=== PATIENT | male | born 1935 | race Caucasian/White ===

== ENCOUNTER 2019-01-02 23:59 | Inpatient (IN) | payer MEDICARE, OTHER ==
[~2019-01-02] VITALS: Ht 165.1 cm; Wt 86.0 kg
[~2019-01-02 23:59] MED LIST: ASPI-831 PO; ATOR40TA68 PO; CHOL100062 PO; ENAL10TA PO; ENOX100D2 SC; LABE200T7 PO; LEVO750T25 PO; LISI-313 PO; SERT50TA6 PO; TAMS-14 PO
[2019-01-03] MEDS ORDERED: ACETAMINOPHEN 325 MG TAB PO ONE (03:30)
[2019-01-03] MEDS ORDERED: VANCOMYCIN 1 GM (PMX) 250 ML IVPB ONE (03:30)
[2019-01-03] MEDS ORDERED: PIPER-TAZO 3.375 GM IV (PMX) 100 ML IVPB ONE (03:30)
[2019-01-03] MEDS ORDERED: VANCOMYCIN IV PER PHARMACY XX SCH (04:00)
[2019-01-03] MEDS ORDERED: NACL 0.9% 3 ML SYG IV SCH (04:00)
[2019-01-03] MEDS ORDERED: ONDANSETRON 4 MG INJ IV PRN (04:00)
[2019-01-03] MEDS ORDERED: BISACODYL (EC) 5 MG TAB PO PRN (04:00)
[2019-01-03] MEDS ORDERED: ACETAMINOPHEN 325 MG TAB PO PRN (04:00)
[2019-01-03] MEDS ORDERED: DOCUSATE SODIUM 100 MG CAP PO PRN (04:00)
--- NOTE | 2019-01-03 04:00 | ERD ---
ER Documentation Chief Complaint Chief Complaint [id number],from home,weakness HPI The patient is a 83-year-old male, presenting to the ER from home because of generalized weakness, trouble walking this afternoon. He denies trauma, sy ncope, near syncope, headache, neck pain, chest pain, dyspnea, abdominal pain, vomiting, dizzy, diarrhea. He does not smoke nor drink Past medical history: Hypertension, CAD Past surgical history: AICD ROS All systems reviewed and are negative except as per history of present illness. Allergies Allergies: Coded Allergies: No Known Allergy (Unverified , 01/03/19) PMhx/Soc Medical and Surgical Hx: pt denies Surgical Hx Hx Alcohol Use: No Hx Substance Use: No Hx Tobacco Use: Yes Smoking Status: Former smoker Physical Exam Vitals Vital Signs Date Temp Pulse Resp B/P (MAP) Pulse Ox O2 O2 Flow FiO2 Time Delivery Rate 01/03/19 36.6 03:43 01/03/19 97.8 78 27 153/84 98 Room Air 02:59 (107) 01/03/19 Nasal 2 01:15 Cannula 01/03/19 100.6 100 18 182/96 95 00:10 (124) Physical Exam Const: No acute distress. Head: Atraumatic. Eyes: Normal Conjunctiva. ENT: Normal External Ears, Nose and Mouth. Neck: Full range of motion. No meningismus. Resp: Clear to auscultation bilaterally. Cardio: Regular rate and rhythm. Abd: Soft, non distended, normal bowel sounds, non tender. Skin: No petechiae or rashes. Back: No midline or flank tenderness. Ext: No cyanosis, or edema. Neur: Awake and alert. No focal deficit Psych: Normal Mood and Affect. Result Diagram: 01/03/19 0019 01/03/19 0019 Results 24 hrs Laboratory Tests Test 01/03/19 00:16 01/03/19 00:19 01/03/19 00:26 Urine Color YELLOW Urine Clarity SLIGHTLY CLOUDY Urine pH 5.0 Urine Specific [place] 1.019 Urine Ketones NEGATIVE mg/dL Urine Nitrite NEGATIVE mg/dL Urine Bilirubin NEGATIVE mg/dL Urine Urobilinogen NEGATIVE mg/dL Urine Leukocyte Esterase NEGATIVE Page/ul Urine Microscopic RBC 2 /HPF Urine Microscopic WBC 1 /HPF Urine Mucus FEW /HPF Urine Hemoglobin 2+ mg/dL Urine Glucose NEGATIVE mg/dL Urine Total Protein 1+ mg/dl White Blood Count 24.9 10^3/ul Red Blood Count 5.82 10^6/ul Hemoglobin 14.6 g/dl Hematocrit 46.9 % Mean Corpuscular Volume 80.6 fl Mean Corpuscular Hemoglobin 25.1 pg Mean Corpuscular 31.1 g/dl Hemoglobin Concent Red Cell Distribution Width 16.4 % Platelet Count 153 10^3/UL Mean Platelet Volume 10.2 fl Immature Granulocytes % 0.500 % Neutrophils % 91.9 % Lymphocytes % 2.9 % Monocytes % 4.4 % Eosinophils % 0.1 % Basophils % 0.2 % Nucleated Red Blood Cells % 0.0 /100WBC Immature Granulocytes # 0.120 10^3/ul Neutrophils # 22.9 10^3/ul Lymphocytes # 0.7 10^3/ul Monocytes # 1.1 10^3/ul Eosinophils # 0.0 10^3/ul Basophils # 0.1 10^3/ul Nucleated Red Blood Cells # 0.0 10^3/ul Prothrombin Time 13.4 Sec Prothrombin Time Ratio 1.0 INR International 1.01 Normalized Ratio Activated Partial Thromboplast 30.7 Sec Time Sodium Level 142 mmol/L Potassium Level 4.2 mmol/L Chloride Level 106 mmol/L Carbon Dioxide Level 25 mmol/L Anion Gap 11 Blood Urea Nitrogen 21 mg/dl Creatinine 1.12 mg/dl Est Glomerular Filtrat mL/min Rate mL/min Glucose Level 126 mg/dl Calcium Level 9.4 mg/dl Total Bilirubin 1.0 mg/dl Direct Bilirubin 0.00 mg/dl Indirect Bilirubin 1.0 mg/dl Aspartate Amino 21 IU/L Transf (AST/SGOT) Alanine 14 IU/L Aminotransferase (ALT/SGPT) Alkaline Phosphatase 82 IU/L Troponin I 0.015 ng/ml Total Protein 8.0 g/dl Albumin 4.3 g/dl Globulin 3.70 g/dl Albumin/Globulin Ratio 1.16 POC Venous Lactate 0.7 mmol/L Current Medications Medications Dose Sig/Xiao Start Time Status Last (Trade) Ordered Route PRN Stop Time Admin Dose Reason Admin 650 mg ONCE ONCE 01/03/19 DC 01/03/19 Acetaminophen PO 03:30 03:43 (Tylenol 01/03/19 03:31 Tab) Vancomycin 250 ml @ ONCE ONCE 01/03/19 HCl 125 mls/hr IVPB 03:30 01/03/19 05:29 Piperacillin 100 ml @ ONCE ONCE 01/03/19 01/03/19 Sod/ 200 mls/hr IVPB 03:30 03:44 Tazobactam 01/03/19 03:59 Sod Procedures/MDM [place] [id number] Radiology Main Line: [phone] DIAGNOSTIC IMAGING REPORT Patient: PREM SHERMAN : 1935 Age: 83 Sex: M MR #: [id number] DOS: 01/03/19 0020 Ordering MD: PREM STONER MD Location: E/R Room/Bed: PROCEDURE: CHEST - 1 VIEW CLINICAL INDICATION: 83-year-old male with shortness of breath and sepsis. TECHNIQUE: A single frontal AP portable view of the chest was performed. The images were reviewed on a PACS workstation. COMPARISON: None. FINDINGS: There is a right-sided chest port in place with the tip of the catheter in the distal superior vena cava. There is a left-sided AICD dual-chamber pacemaker combination. The cardiomediastinal silhouette is enlarged. The lung apices are partially obscured by the patient's overlying mandible. There is moderate elevation left hemidiaphragm. There is mild left basilar subsegmental atelectasis. There is no evidence for focal consolidation. There is no evidence for congestive heart failure. There is no evidence for pneumothorax. The osseous structures are intact. IMPRESSION: 1. Right-sided chest port. 2. Left-sided AICD dual-chamber pacemaker combination. 3. Cardiomegaly. 4. Moderate elevation left hemidiaphragm with mild left basilar subsegmental a telectasis. .Grant Flores MD, Date Time Electronically viewed and signed by .Grant Flores MD, on 01/03/2019 01:55 .M/ CC: PREM STONER MD [id number] EKG: Read by emergency physician Rate/Rhythm: Normal Sinus Rhythm 94 beats/min QRS, ST, T-waves: No ST elevation, no T inversion, inferior anterior lateral Q Impression: Abnormal EKG MEDICAL MAKING DECISION: The patient is a 83-year-old male, presenting with ac [place] SIRS with leukocytosis of 25,000 of unclear sources. He was treated empirically with Zosyn IV and vancomycin IV, for fever with good response. The differential diagnoses considered include but are not limited to influenza, pneumonia, cystitis, endocarditis Departure Diagnosis: Primary Impression: SIRS (systemic inflammatory response syndrome) Condition: Stable Comments I discussed the findings with the patient. I notified the patient with Dr. Martinez via [employer] at 3:35 am, who was made aware of the lab, the treatment, the patient condition. The patient is admitted to [facility] Disclaimer: Inadvertent spelling and grammatical errors are likely due to EHR/dictation software use and do not reflect on the overall quality of patient care. Also, please note that the electronic time recorded on this note does not necessarily reflect the actual time of the patient encounter. PREM STONER MD Jan 03, 2019 03:59
[2019-01-03 05:00] VITALS: BP 156/88; PULSE 76; RESP 18; Ht 165.1 cm; Wt 86.0 kg
--- NOTE | 2019-01-03 06:55 | HP ---
Date/Time of Note Date/Time of Note DATE: 01/03/19 TIME: 06:55 Assessment/Plan VTE Prophylaxis SCD applied (from Nsg): Yes Pharmacological prophylaxis: NA/contraindicated Pharm contraindication: low risk/ambulating Lines/Catheters IV Catheter Type (from Nrsg): [place] Urinary Cath still in place: No Assessment/Plan Hospital Course This is a 83-year-old male being admitted to the [facility] floor for: #1 systemic inflammatory response syndrome: Viral versus bacterial. He did present with a temperature of 100.6. And a white count of 24,000. He does not have any meningeal signs.. Chest x-ray and urinalysis do not show a source at the current time. Cultures are pending. Broad-spectrum antibiotics of vancomycin and Zosyn. Need to monitor the white count. #2 hypertension: We will need to confirm patient's blood pressure medications, at the current time PRN hydralazine #3 coronary artery disease: Again only to confirm patient's home medications, he has pacemaker/AICD. Monitor closely. will check an echo #4 generalized weakness: Secondary to possible underlying infection. Mild dehydration. Will hydrate the patient. PT evaluation. #5 possible dementia: We will need to corroborate his history with any family/friends. He was not able to provide me with any phone numbers to any family. PT evaluation. #6 DVT GI prophylaxis: SCDs, no GI prophylaxis indicated Further treatment strategy will be implemented as per the clinical course. Result Diagram: 01/03/19 0019 01/03/19 0019 Results 24hrs Laboratory Tests Test 01/03/19 00:16 01/03/19 00:19 01/03/19 00:26 01/03/19 02:20 Urine Color YELLOW Urine Clarity SLIGHTLY CLOUDY A Urine pH 5.0 Urine Specific 1.019 [place] Urine Ketones NEGATIVE Urine Nitrite NEGATIVE Urine Bilirubin NEGATIVE Urine NEGATIVE Urobilinogen Urine Leukocyte NEGATIVE Esterase Urine Microscopic 2 RBC Urine Microscopic 1 WBC Urine Mucus FEW A Urine Hemoglobin 2+ H Urine Glucose NEGATIVE Urine Total 1+ H Protein White Blood Count 24.9 H Red Blood Count 5.82 Hemoglobin 14.6 Hematocrit 46.9 Mean Corpuscular 80.6 L Volume Mean Corpuscular 25.1 L Hemoglobin Mean Corpuscular 31.1 L Hemoglobin Concen t Red Cell 16.4 H Distribution Width Platelet Count 153 Mean Platelet 10.2 Volume Immature 0.500 H Granulocytes % Neutrophils % 91.9 H Lymphocytes % 2.9 L Monocytes % 4.4 Eosinophils % 0.1 Basophils % 0.2 Nucleated Red 0.0 Blood Cells % Immature 0.120 H Granulocytes # Neutrophils # 22.9 H Lymphocytes # 0.7 L Monocytes # 1.1 H Eosinophils # 0.0 Basophils # 0.1 Nucleated Red 0.0 Blood Cells # Prothrombin Time 13.4 Prothrombin Time 1.0 Ratio INR International 1.01 Normalized Ratio Activated 30.7 Partial Thrombopl ast Time Sodium Level 142 Potassium Level 4.2 Chloride Level 106 Carbon Dioxide 25 Level Anion Gap 11 Blood Urea 21 H Nitrogen Creatinine 1.12 Est Glomerular Filtrat Rate mL/min Glucose Level 126 Calcium Level 9.4 Total Bilirubin 1.0 Direct Bilirubin 0.00 Indirect 1.0 Bilirubin Aspartate Amino 21 Transf (AST/SGOT) Alanine 14 Aminotransferase (ALT/SGPT) Alkaline 82 Phosphatase Troponin I 0.015 Total Protein 8.0 Albumin 4.3 Globulin 3.70 H Albumin/Globulin 1.16 Ratio POC Venous 0.7 Lactate Lactic Acid Level 1.2 Test 01/03/19 04:35 Lactic Acid Level 1.2 HPI/ROS Admit Date/Time Admit Date/Time Jan 03, 2019 at 03:38 Hx of Present Illness Chief complaint: Generalized weakness, unsteady gait Patient is a poor historian This is a 83-year-old male with a past medical history of hypertension and coronary artery disease with a pacemaker AICD who presented from home with generalized weakness. Patient is a poor historian and possibly has underlying dementia. He states that he lives with family. And that he had trouble walking yesterday. He denies any chest pain or shortness of breath or any fevers. He also has a right chest port but he does not know why he has it. He denies any nausea vomiting or diarrhea. He reports that he walks with a walker at home and on occasion with a cane. Allergies: NKDA Medications: Unknown ROS Const: As per HPI Eyes : No pain discharge or redness or change in visual acuity ENT: No pain, sore throat, congestion, congestion, dysphagia or discharge Respiratory: No shortness of breath, cough, sputum, wheezing, or pleuritic pain Cardiovascular: No chest pain, palpitation, PND, or edema GI : no change in appetite, abdominal pain, nausea, vomiting, diarrhea, constipation, or change in the color his stool Genitourinary: No dysuria, hematuria, flank pain , discharge or CVA tenderness Musculoskeletal: As per HPI Skin: No rash, bruising or hives Neuro: No headache, dizziness, syncope, seizure, focal weakness Endocrine: No polyuria, polydipsia, temperature intolerance Psych: No hallucination, depression, anxiety or suicidal ideation PMH/Family/Social Past Medical History Hypertension, coronary artery disease, unable to obtain further history seconda ry to possibly underlying dementia Medications Current Medications IV Flush (NS 3 ml) 3 ml PER PROTOCOL IV ; Start 01/03/19 at 04:00 Ondansetron HCl (Zofran Inj) 4 mg Q6H PRN IV NAUSEA/VOMITING; Start 01/03/19 at 04:00 Acetaminophen (Tylenol Tab) 650 mg Q6H PRN PO .PAIN 1-3 OR TEMP; Start 01/03/19 at 04:00 Docusate Sodium (Colace) 100 mg Q12H PRN PO .CONSTIPATION; Start 01/03/19 at 04:00 Bisacodyl (Dulcolax) 5 mg DAILY PRN PO .CONSTIPATION; Start 01/03/19 at 04:00 Vancomycin HCl (Vanco Iv Per Pharmacy) VANCOMYCIN PER PHARMACY PER PROTOCOL XX ; Start 01/03/19 at 04:00 Piperacillin Sod/ Tazobactam Sod 100 ml @ 200 mls/hr Q6 IVPB ; Start 01/03/19 at 08:00 Vancomycin HCl 1.25 gm/Sodium Chloride 250 ml @ 83.333 mls/ hr Q24H IVPB ; Start 01/04/19 at 03:00 Miscellaneous Information (*Rx Drug Level Order Reminder*) VANCOMYCIN TROUGH LEVEL 0200 ONCE XX ; Start 01/07/19 at 02:00; Stop 01/07/19 at 02:01 Coded Allergies: No Known Allergy (Unverified , 01/03/19) Past Surgical History AICD/pacemaker,unable to obtain further history secondary to possibly underlying dementia Family History Significant Family History: no pertinent family hx Social History Alcohol Use: none Smoking Status: Never smoker Drug Use: none Exam/Review of Systems Vital Signs Vitals Vital Signs Date Temp Pulse Resp B/P (MAP) Pulse Ox O2 O2 Flow FiO2 Time Delivery Rate 01/03/19 97.5 76 18 156/88 97 Room Air 05:00 (110) 01/03/19 2 01:15 Exam Exam General: Patient is a pleasant male currently lying in bed in no acute distress HEENT: Atraumatic, normocephalic. The pupils are equal, round and reactive. Extraocular motor are intact Neck: Supple with full range of motion. No rigidity or meningismus Chest: Right-sided chest port Lungs: Clear to auscultation bilaterally no crackles rales or wheezing Heart: Normal S1-S2, Regular rhythm and rate. No murmur, S3, or S4 Abdomen: Soft , nontender, nondistended , bowel sounds are present. No guarding no rebound tenderness , No masses or organomegaly. No costovertebral temporal angle mass Extremities: Normal to inspection, no edema no cyanosis Neurologic: He is alert and awake, speech is slow but normal, cranial nerves II through XII intact, he is able to move all 4 of his extremities. Additional Comments EKG: Rate/Rhythm: Normal Sinus Rhythm 94 beats/min QRS, ST, T-waves: No ST elevation, no T inversion, inferior anterior lateral Q Impression: Abnormal EKG AJ GREENBERG Jan 03, 2019 06:55
[2019-01-03] MEDS ORDERED: hydrALAzine 20 MG INJ IV PRN (07:19)
[2019-01-03 07:35] VITALS: BP 142/78; PULSE 74; RESP 20
[2019-01-03] MEDS: PIPER-TAZO 3.375 GM IV (PMX) 100 ML IVPB SCH ×4 (08:10→23:03)
--- NOTE | 2019-01-03 12:35 | PN ---
Date/Time of Note Date/Time of Note DATE: 01/03/19 TIME: 12:26 Assessment/Plan VTE Prophylaxis Risk score (from Ns)>0 risk: 7 [place] [facility] [place] Pharmacological prophylaxis: LMWH Lines/Catheters [facility]from [facility] Peripheral IV Urinary Cath still in place: No Assessment/Plan Assessment/Plan 1. SIRS, unknown source - patient with elevated WBC and mild fever but no source at this time. Pancultures pending - continue broad spectrum antibiotics for now and await cx results - will check influenza 2. CAD - pacer/AICD in placed - will need to find out home medications 3. Generalized weakness - per GF patient usually sleeps all day and is prone to falls - PT consulted - working up for possible infectious source as cause for weakness 4. h/o Colon cancer 2012 - stable 5. Mild cognitive impairment - patient remains pleasant 6. Disposition - monitor WBC and await culture results - PT to evaluated gait Result Diagram: 01/03/19 0019 01/03/19 0019 Results 24hrs Laboratory Tests Test 01/03/19 00:16 01/03/19 00:19 01/03/19 00:26 01/03/19 02:20 Urine Color YELLOW Urine Clarity SLIGHTLY CLOUDY A Urine pH 5.0 Urine Specific 1.019 [place] Urine Ketones NEGATIVE Urine Nitrite NEGATIVE Urine Bilirubin NEGATIVE Urine NEGATIVE Urobilinogen Urine Leukocyte NEGATIVE Esterase Urine Microscopic 2 RBC Urine Microscopic 1 WBC Urine Mucus FEW A Urine Hemoglobin 2+ H Urine Glucose NEGATIVE Urine Total 1+ H Protein White Blood Count 24.9 H Red Blood Count 5.82 Hemoglobin 14.6 Hematocrit 46.9 Mean Corpuscular 80.6 L Volume Mean Corpuscular 25.1 L Hemoglobin Mean Corpuscular 31.1 L Hemoglobin Concen t Red Cell 16.4 H Distribution Width Platelet Count 153 Mean Platelet 10.2 Volume Immature 0.500 H Granulocytes % Neutrophils % 91.9 H Lymphocytes % 2.9 L Monocytes % 4.4 Eosinophils % 0.1 Basophils % 0.2 Nucleated Red 0.0 Blood Cells % Immature 0.120 H Granulocytes # Neutrophils # 22.9 H Lymphocytes # 0.7 L Monocytes # 1.1 H Eosinophils # 0.0 Basophils # 0.1 Nucleated Red 0.0 Blood Cells # Prothrombin Time 13.4 Prothrombin Time 1.0 Ratio INR International 1.01 Normalized Ratio Activated 30.7 Partial Thrombopl ast Time Sodium Level 142 Potassium Level 4.2 Chloride Level 106 Carbon Dioxide 25 Level Anion Gap 11 Blood Urea 21 H Nitrogen Creatinine 1.12 Est Glomerular Filtrat Rate mL/min Glucose Level 126 Calcium Level 9.4 Total Bilirubin 1.0 Direct Bilirubin 0.00 Indirect 1.0 Bilirubin Aspartate Amino 21 Transf (AST/SGOT) Alanine 14 Aminotransferase (ALT/SGPT) Alkaline 82 Phosphatase Troponin I 0.015 Total Protein 8.0 Albumin 4.3 Globulin 3.70 H Albumin/Globulin 1.16 Ratio POC Venous 0.7 Lactate Lactic Acid Level 1.2 Test 01/03/19 04:35 Lactic Acid Level 1.2 Subjective 24 Hr Interval Summary Free Text/Dictation Patient states hes "happy" today and denies any new issues. States came to the ER due to weakness. Exam/Review of Systems Exam Vitals Vital Signs Date Temp Pulse Resp B/P (MAP) Pulse Ox O2 O2 Flow FiO2 Time Delivery Rate 01/03/19 97.9 74 20 142/78 92 07:35 (99) 01/03/19 Room Air 05:00 01/03/19 2 01:15 Exam General: Patient knows name and states he's in [place]. Neck: Supple with full range of motion. No rigidity or meningismus Chest: Right-sided chest port Lungs: Clear to auscultation bilaterally no crackles rales or wheezing Heart: Normal S1-S2, Regular rhythm and rate. No murmur, S3, or S4 Abdomen: Soft , nontender, nondistended , bowel sounds are present. No guarding no rebound tenderness Extremities: Normal to inspection, no edema no cyanosis Results Results 24hrs Laboratory Tests Test 01/03/19 00:16 01/03/19 00:19 01/03/19 00:26 01/03/19 02:20 Urine Color YELLOW Urine Clarity SLIGHTLY CLOUDY A Urine pH 5.0 Urine Specific 1.019 [place] Urine Ketones NEGATIVE Urine Nitrite NEGATIVE Urine Bilirubin NEGATIVE Urine NEGATIVE Urobilinogen Urine Leukocyte NEGATIVE Esterase Urine Microscopic 2 RBC Urine Microscopic 1 WBC Urine Mucus FEW A Urine Hemoglobin 2+ H Urine Glucose NEGATIVE Urine Total 1+ H Protein White Blood Count 24.9 H Red Blood Count 5.82 Hemoglobin 14.6 Hematocrit 46.9 Mean Corpuscular 80.6 L Volume Mean Corpuscular 25.1 L Hemoglobin Mean Corpuscular 31.1 L Hemoglobin Concen t Red Cell 16.4 H Distribution Width Platelet Count 153 Mean Platelet 10.2 Volume Immature 0.500 H Granulocytes % Neutrophils % 91.9 H Lymphocytes % 2.9 L Monocytes % 4.4 Eosinophils % 0.1 Basophils % 0.2 Nucleated Red 0.0 Blood Cells % Immature 0.120 H Granulocytes # Neutrophils # 22.9 H Lymphocytes # 0.7 L Monocytes # 1.1 H Eosinophils # 0.0 Basophils # 0.1 Nucleated Red 0.0 Blood Cells # Prothrombin Time 13.4 Prothrombin Time 1.0 Ratio INR International 1.01 Normalized Ratio Activated 30.7 Partial Thrombopl ast Time Sodium Level 142 Potassium Level 4.2 Chloride Level 106 Carbon Dioxide 25 Level Anion Gap 11 Blood Urea 21 H Nitrogen Creatinine 1.12 Est Glomerular Filtrat Rate mL/min Glucose Level 126 Calcium Level 9.4 Total Bilirubin 1.0 Direct Bilirubin 0.00 Indirect 1.0 Bilirubin Aspartate Amino 21 Transf (AST/SGOT) Alanine 14 Aminotransferase (ALT/SGPT) Alkaline 82 Phosphatase Troponin I 0.015 Total Protein 8.0 Albumin 4.3 Globulin 3.70 H Albumin/Globulin 1.16 Ratio POC Venous 0.7 Lactate Lactic Acid Level 1.2 Test 01/03/19 04:35 Lactic Acid Level 1.2 Medications Medication Current Medications IV Flush (NS 3 ml) 3 ml PER PROTOCOL IV ; Start 01/03/19 at 04:00 Ondansetron HCl (Zofran Inj) 4 mg Q6H PRN IV NAUSEA/VOMITING; Start 01/03/19 at 04:00 Acetaminophen (Tylenol Tab) 650 mg Q6H PRN PO .PAIN 1-3 OR TEMP; Start 01/03/19 at 04:00 Docusate Sodium (Colace) 100 mg Q12H PRN PO .CONSTIPATION; Start 01/03/19 at 04:00 Bisacodyl (Dulcolax) 5 mg DAILY PRN PO .CONSTIPATION; Start 01/03/19 at 04:00 Vancomycin HCl (Vanco Iv Per Pharmacy) VANCOMYCIN PER PHARMACY PER PROTOCOL XX ; Start 01/03/19 at 04:00 Piperacillin Sod/ Tazobactam Sod 100 ml @ 200 mls/hr Q6 IVPB Last administered on 01/03/19at 12:07; Admin Dose 200 MLS/HR; Start 01/03/19 at 08:00 Vancomycin HCl 1.25 gm/Sodium Chloride 250 ml @ 83.333 mls/ hr Q24H IVPB ; Start 01/04/19 at 03:00 Miscellaneous Information (*Rx Drug Level Order Reminder*) VANCOMYCIN TROUGH LEVEL 0200 ONCE XX ; Start 01/07/19 at 02:00; Stop 01/07/19 at 02:01 Hydralazine HCl (Apresoline) 10 mg Q4H PRN IV ELEVATED BLOOD PRESSURE; Start 01/03/19 at 07:19 DELTA URIAS MD Jan 03, 2019 12:34
[2019-01-03 14:00] VITALS: BP 128/83; PULSE 72; RESP 18
[2019-01-03 20:43] VITALS: BP 158/95; PULSE 75; RESP 18
--- NOTE | 2019-01-03 23:08 | CONS ---
DATE OF ADMISSION: 01/03/2019 DATE OF CONSULTATION: 01/03/2019 TYPE OF CONSULTATION: Infectious Disease. REASON FOR CONSULTATION: Antibiotic management. HISTORY OF PRESENT ILLNESS: Jori Nunes is an 83-year-old male who was brought in from home with weakness and is being seen for antibiotic management. His major problems include: 1. Hypertension. 2. Coronary artery disease. 3. AICD. Acutely, the patient comes in complaining of weakness. PAST SURGICAL HISTORY: Has to do with his pacemaker and defibrillator. FAMILY HISTORY: Noncontributory. SOCIAL HISTORY: He is a former smoker. He does not drink or abuse drugs. ALLERGIES: NONE TO PENICILLIN, SULFA OR FOODS. MEDICATIONS: Per chart. REVIEW OF SYSTEMS: Noncontributory. PHYSICAL EXAMINATION: GENERAL: The patient is alert, in no acute distress. VITAL SIGNS: T-max 100.6. SKIN: Without generalized rash. HEENT: Within normal limits. NECK: Supple. LYMPH NODES: None palpable. CHEST: Decreased breath sounds at the bases. HEART: Without murmur or gallop. ABDOMEN: Soft, nontender, without organosplenomegaly or masses. EXTREMITIES: Without cyanosis, clubbing, or edema. RECTAL AND GENITAL: Deferred. NEUROLOGIC: No focal neurological abnormality. ANCILLARY LABORATORY DATA: White count of 24.9 with 92% neutrophils, H and H of 14.6 and 46.9, plate let count 153,000. BUN and creatinine 21/1.12, glucose of 126. HOSPITAL COURSE: The patient currently was placed on vancomycin and Zosyn. Chest x-ray showed right -sided chest port, left-sided AICD dual chamber pacemaker combination, cardiomegaly, moderate elevati on of left hemidiaphragm with mild left basilar subsegmental atelectasis, no evidence of focal consol idation, no evidence for congestive heart failure, no evidence for pneumothorax, he has left basilar subsegmental atelectasis. IMPRESSION AND PLAN: The patient presents with leukocytosis of 25,000, or 24.9, the etiology of whic h is unclear. He was started empirically on vancomycin and Zosyn. The patient has systemic inflamma tory response syndrome, viral versus bacterial, with an elevated white count that he has it is more l ikely to be bacterial. The patient with possible dementia. Urine is negative for leukocytosis and l eukocyte esterase today. [place] cultures are pending. We will continue him on current therapy. I will dictate my findings to the hospitalist. Dictated By: LOLA TRINIDAD MD, JD/JEYSON Conf#: [id number] DID#: [id number]
[2019-01-04] VITALS (7 sets, daily range): BP systolic 100–176; BP diastolic 57–99; PULSE 70–110; RESP 15–24
[2019-01-04] MEDS: VANCOMYCIN HCL 1.25 GM in SOD CHLORIDE 0.9% 250 ML IVPB SCH (02:03)
[2019-01-04] MEDS ORDERED: ALBUTEROL/IPRATROPIUM (NEB) 3 ML AMP HHN ONE (02:57)
[2019-01-04] MEDS ORDERED: LEVALBUTEROL (NEB) 1.25 MG/0.5 ML AMP HHN PRN (03:30)
[2019-01-04] MEDS ORDERED: FUROSEMIDE 20 MG INJ IV ONE (04:00)
[2019-01-04] MEDS: PIPER-TAZO 3.375 GM IV (PMX) 100 ML IVPB SCH ×2 (05:29→11:24)
[2019-01-04] MEDS ORDERED: LEVALBUTEROL (NEB) 0.63 MG/3 ML AMP HHN PRN (08:30)
[2019-01-04] MEDS ORDERED: ENOXAPARIN 40 MG/0.4 ML SYG SC SCH (09:00)
--- NOTE | 2019-01-04 09:31 | PN ---
Date/Time of Note Date/Time of Note DATE: 01/04/19 TIME: 09:22 Assessment/Plan VTE Prophylaxis Risk score (from Ns)>0 risk: 7 SCD applied (from Ns): Yes Pharmacological prophylaxis: LMWH Lines/Catheters IV Catheter Type (from Nrs): Peripheral IV Urinary Cath still in place: No Assessment/Plan Assessment/Plan 1. SIRS, unknown source - WBC trending down - ID consultation appreciated - Blood culture positives but may be contaminant. Will repeat blood cultures - continue broad spectrum antibiotics for now 2. CAD - pacer/AICD in placed - restarted home medications 3. Generalized weakness - per GF patient usually sleeps all day and is prone to falls - PT consulted for evaluation 4. h/o Colon cancer 2012 - stable 5. Mild cognitive impairment - patient remains pleasant 6. Disposition - monitor WBC and await repeat blood cultures - PT to evaluated gait Result Diagram: 01/04/19 0438 01/04/19 0438 Results 24hrs Laboratory Tests Test 01/04/19 04:38 White Blood Count 23.6 H Red Blood Count 5.54 Hemoglobin 13.9 L Hematocrit 45.5 Mean Corpuscular Volume 82.1 Mean Corpuscular Hemoglobin 25.1 L Mean Corpuscular Hemoglobin Concent 30.5 L Red Cell Distribution Width 16.7 H Platelet Count 146 Mean Platelet Volume 10.4 Immature Granulocytes % 0.700 H Neutrophils % 89.7 H Lymphocytes % 3.1 L Monocytes % 5.8 Eosinophils % 0.4 Basophils % 0.3 Nucleated Red Blood Cells % 0.0 Immature Granulocytes # 0.160 H Neutrophils # 21.2 H Lymphocytes # 0.7 L Monocytes # 1.4 H Eosinophils # 0.1 Basophils # 0.1 Nucleated Red Blood Cells # 0.0 Sodium Level 144 Potassium Level 3.5 Chloride Level 108 Carbon Dioxide Level 25 Anion Gap 11 Blood Urea Nitrogen 23 H Creatinine 1.11 Est Glomerular Filtrat Rate mL/min Glucose Level 121 Hemoglobin A1c 5.3 Calcium Level 9.2 Magnesium Level 2.0 Total Bilirubin 0.7 Direct Bilirubin 0.00 Indirect Bilirubin 0.7 Aspartate Amino Transf (AST/SGOT) 19 Alanine Aminotransferase (ALT/SGPT) 11 L Alkaline Phosphatase 72 Total Protein 7.5 Albumin 4.0 Globulin 3.50 H Albumin/Globulin Ratio 1.14 Triglycerides Level 118 Cholesterol Level 149 LDL Cholesterol, Calculated 89 HDL Cholesterol 36 Cholesterol/HDL Ratio 4.1 Thyroid Stimulating Hormone (TSH) 1.240 Subjective 24 Hr Interval Summary Free Text/Dictation Patient is doing well and denies any new issues. requesting orange juice. Denies any fevers or chills. Was noted to be SOB yesterday but improved with neb tx. Exam/Review of Systems Exam Vitals Vital Signs Date Temp Pulse Resp B/P (MAP) Pulse Ox O2 O2 Flow FiO2 Time Delivery Rate 01/04/19 98.1 73 15 163/83 94 Nasal 08:13 (109) Cannula 01/04/19 2.0 03:33 Intake and Output 01/03/19 01/03/19 01/04/19 1515:00 23:00 07:00 IntakeIntake Total 520 ml 200 ml 568 ml OutputOutput Total 300 ml 100 ml 900 ml BalanceBalance 220 ml 100 ml -332 ml Exam General: Patient in no acute distress. oriented to self and hospital Neck: Supple Chest: Right-sided chest port Lungs: Clear to auscultation bilaterally no crackles rales. mild audible expiratory wheeze Heart: Normal S1-S2, Regular rhythm and rate. No murmur, S3, or S4 Abdomen: Soft , nontender, nondistended , bowel sounds are present. No guarding no rebound tenderness Extremities: Normal to inspection, no edema no cyanosis Results Results 24hrs Laboratory Tests Test 01/04/19 04:38 White Blood Count 23.6 H Red Blood Count 5.54 Hemoglobin 13.9 L Hematocrit 45.5 Mean Corpuscular Volume 82.1 Mean Corpuscular Hemoglobin 25.1 L Mean Corpuscular Hemoglobin Concent 30.5 L Red Cell Distribution Width 16.7 H Platelet Count 146 Mean Platelet Volume 10.4 Immature Granulocytes % 0.700 H Neutrophils % 89.7 H Lymphocytes % 3.1 L Monocytes % 5.8 Eosinophils % 0.4 Basophils % 0.3 Nucleated Red Blood Cells % 0.0 Immature Granulocytes # 0.160 H Neutrophils # 21.2 H Lymphocytes # 0.7 L Monocytes # 1.4 H Eosinophils # 0.1 Basophils # 0.1 Nucleated Red Blood Cells # 0.0 Sodium Level 144 Potassium Level 3.5 Chloride Level 108 Carbon Dioxide Level 25 Anion Gap 11 Blood Urea Nitrogen 23 H Creatinine 1.11 Est Glomerular Filtrat Rate mL/min Glucose Level 121 Hemoglobin A1c 5.3 Calcium Level 9.2 Magnesium Level 2.0 Total Bilirubin 0.7 Direct Bilirubin 0.00 Indirect Bilirubin 0.7 Aspartate Amino Transf (AST/SGOT) 19 Alanine Aminotransferase (ALT/SGPT) 11 L Alkaline Phosphatase 72 Total Protein 7.5 Albumin 4.0 Globulin 3.50 H Albumin/Globulin Ratio 1.14 Triglycerides Level 118 Cholesterol Level 149 LDL Cholesterol, Calculated 89 HDL Cholesterol 36 Cholesterol/HDL Ratio 4.1 Thyroid Stimulating Hormone (TSH) 1.240 Medications Medication Current Medications IV Flush (NS 3 ml) 3 ml PER PROTOCOL IV ; Start 01/03/19 at 04:00 Ondansetron HCl (Zofran Inj) 4 mg Q6H PRN IV NAUSEA/VOMITING; Start 01/03/19 at 04:00 Acetaminophen (Tylenol Tab) 650 mg Q6H PRN PO .PAIN 1-3 OR TEMP; Start 01/03/19 at 04:00 Docusate Sodium (Colace) 100 mg Q12H PRN PO .CONSTIPATION; Start 01/03/19 at 04:00 Bisacodyl (Dulcolax) 5 mg DAILY PRN PO .CONSTIPATION; Start 01/03/19 at 04:00 Vancomycin HCl (Vanco Iv Per Pharmacy) VANCOMYCIN PER PHARMACY PER PROTOCOL XX ; Start 01/03/19 at 04:00 Piperacillin Sod/ Tazobactam Sod 100 ml @ 200 mls/hr Q6 IVPB Last administered on 01/04/19at 05:29; Admin Dose 200 MLS/HR; Start 01/03/19 at 08:00 Vancomycin HCl 1.25 gm/Sodium Chloride 250 ml @ 83.333 mls/ hr Q24H IVPB Last administered on 01/04/19at 02:03; Admin Dose 83.333 MLS/HR; Start 01/04/19 at 03:00 Miscellaneous Information (*Rx Drug Level Order Reminder*) VANCOMYCIN TROUGH LEVEL 0200 ONCE XX ; Start 01/07/19 at 02:00; Stop 01/07/19 at 02:01 Hydralazine HCl (Apresoline) 10 mg Q4H PRN IV ELEVATED BLOOD PRESSURE Last administered on 01/04/19at 02:03; Admin Dose 10 MG; Start 01/03/19 at 07:19 Enoxaparin Sodium (Lovenox) 40 mg DAILY SC Last administered on 01/04/19at 08:48; Admin Dose 40 MG; Start 01/04/19 at 09:00 Levalbuterol (Xopenex Neb) 1.25 mg Q4H RESP THERAPY PRN HHN WHEEZING; Start 01/04/19 at 03:30 Levalbuterol (Xopenex Neb) 0.63 mg Q4H RESP THERAPY PRN HHN shortness of breath; Start 01/04/19 at 08:30 DELTA URIAS MD Jan 04, 2019 09:31
[2019-01-04] MEDS: LABETALOL 200 MG TAB PO SCH ×2 (10:10→21:34)
[2019-01-04] MEDS: ASPIRIN 81 MG TAB PO SCH (10:10)
[2019-01-04] MEDS: ENALAPRIL 10 MG TAB PO SCH (10:11)
[2019-01-04] MEDS: CHOLECALCIFEROL 1,000 UNIT TAB PO SCH (10:11)
[2019-01-04] MEDS: SERTRALINE 50 MG TAB PO SCH (10:11)
--- NOTE | 2019-01-04 14:47 | CONS ---
Assessment/Plan Assessment/Plan Hospital Course (Demo Recall) No acute changes overnight patient is awake currently getting 2D echo denies pain at the moment no fevers overnight WBC 23.6 neutrophils 89.7 BUN 23 creatinine 1.11 Blood culture grew gram-positive cocci in pair and clusters 1 set urine culture grew gram-negative rods influenza swab negative Chest x-ray this morning revealed right hemidiaphragm remains elevated with mild patchy left basilar atelectasis Antimicrobials: Vancomycin Zosyn Physical examination: Well-developed well-nourished elderly white man who is alert in no distress. Head atraumatic normocephalic neck is supple chest rise symmetrical breath sounds diminished bases heart S1-S2 abdomen soft bowel sounds present Assessment: 1. SIRS 2. Urinary tract infection, gram-negative rods 3. Bacteremia rule out contaminant 4. Possible pneumonia 5. Coronary artery disease with a history of AICD 6. History of colon cancer Plan: Patient is stable, change Zosyn to cefepime, continue vancomycin, repeat blood cultures Consultation Date/Type/Reason Admit Date/Time Jan 03, 2019 at 03:38 Initial Consult Date Type of Consult id Date/Time of Note DATE: 01/04/19 TIME: 14:47 Exam/Review of Systems Exam Vitals Vital Signs Date Temp Pulse Resp B/P (MAP) Pulse Ox O2 O2 Flow FiO2 Time Delivery Rate 01/04/19 98.0 71 16 100/57 94 Room Air 13:35 (71) 01/04/19 2.0 03:33 Intake and Output 01/03/19 01/03/19 01/04/19 1515:00 23:00 07:00 IntakeIntake Total 520 ml 200 ml 568 ml OutputOutput Total 300 ml 100 ml 900 ml BalanceBalance 220 ml 100 ml -332 ml Results Result Diagram: 01/04/19 0438 01/04/19 0438 Results 24hrs Laboratory Tests Test 01/04/19 04:38 White Blood Count 23.6 H Red Blood Count 5.54 Hemoglobin 13.9 L Hematocrit 45.5 Mean Corpuscular Volume 82.1 Mean Corpuscular Hemoglobin 25.1 L Mean Corpuscular Hemoglobin Concent 30.5 L Red Cell Distribution Width 16.7 H Platelet Count 146 Mean Platelet Volume 10.4 Immature Granulocytes % 0.700 H Neutrophils % 89.7 H Lymphocytes % 3.1 L Monocytes % 5.8 Eosinophils % 0.4 Basophils % 0.3 Nucleated Red Blood Cells % 0.0 Immature Granulocytes # 0.160 H Neutrophils # 21.2 H Lymphocytes # 0.7 L Monocytes # 1.4 H Eosinophils # 0.1 Basophils # 0.1 Nucleated Red Blood Cells # 0.0 Sodium Level 144 Potassium Level 3.5 Chloride Level 108 Carbon Dioxide Level 25 Anion Gap 11 Blood Urea Nitrogen 23 H Creatinine 1.11 Est Glomerular Filtrat Rate mL/min Glucose Level 121 Hemoglobin A1c 5.3 Calcium Level 9.2 Magnesium Level 2.0 Total Bilirubin 0.7 Direct Bilirubin 0.00 Indirect Bilirubin 0.7 Aspartate Amino Transf (AST/SGOT) 19 Alanine Aminotransferase (ALT/SGPT) 11 L Alkaline Phosphatase 72 Total Protein 7.5 Albumin 4.0 Globulin 3.50 H Albumin/Globulin Ratio 1.14 Triglycerides Level 118 Cholesterol Level 149 LDL Cholesterol, Calculated 89 HDL Cholesterol 36 Cholesterol/HDL Ratio 4.1 Thyroid Stimulating Hormone (TSH) 1.240 Medications Medication Current Medications IV Flush (NS 3 ml) 3 ml PER PROTOCOL IV ; Start 01/03/19 at 04:00 Ondansetron HCl (Zofran Inj) 4 mg Q6H PRN IV NAUSEA/VOMITING; Start 01/03/19 at 04:00 Acetaminophen (Tylenol Tab) 650 mg Q6H PRN PO .PAIN 1-3 OR TEMP; Start 01/03/19 at 04:00 Docusate Sodium (Colace) 100 mg Q12H PRN PO .CONSTIPATION; Start 01/03/19 at 04:00 Bisacodyl (Dulcolax) 5 mg DAILY PRN PO .CONSTIPATION; Start 01/03/19 at 04:00 Vancomycin HCl (Vanco Iv Per Pharmacy) VANCOMYCIN PER PHARMACY PER PROTOCOL XX ; Start 01/03/19 at 04:00 Piperacillin Sod/ Tazobactam Sod 100 ml @ 200 mls/hr Q6 IVPB Last administered on 01/04/19at 11:24; Admin Dose 200 MLS/HR; Start 01/03/19 at 08:00 Vancomycin HCl 1.25 gm/Sodium Chloride 250 ml @ 83.333 mls/ hr Q24H IVPB Last administered on 01/04/19at 02:03; Admin Dose 83.333 MLS/HR; Start 01/04/19 at 03:00 Miscellaneous Information (*Rx Drug Level Order Reminder*) VANCOMYCIN TROUGH LEVEL 0200 ONCE XX ; Start 01/07/19 at 02:00; Stop 01/07/19 at 02:01 Hydralazine HCl (Apresoline) 10 mg Q4H PRN IV ELEVATED BLOOD PRESSURE Last administered on 01/04/19at 02:03; Admin Dose 10 MG; Start 01/03/19 at 07:19 Enoxaparin Sodium (Lovenox) 40 mg DAILY SC Last administered on 01/04/19at 08:48; Admin Dose 40 MG; Start 01/04/19 at 09:00 Levalbuterol (Xopenex Neb) 1.25 mg Q4H RESP THERAPY PRN HHN WHEEZING; Start 01/04/19 at 03:30 Levalbuterol (Xopenex Neb) 0.63 mg Q4H RESP THERAPY PRN HHN shortness of breath; Start 01/04/19 at 08:30 Aspirin (Aspirin) 81 mg DAILY PO Last administered on 01/04/19at 10:10; Admin Dose 81 MG; Start 01/04/19 at 09:30 Atorvastatin Calcium (Lipitor) 20 mg QHS PO ; Start 01/04/19 at 21:00 Cholecalciferol (Vitamin D) 2,000 unit DAILY PO Last administered on 01/04/19at 10:11; Admin Dose 2,000 UNIT; Start 01/04/19 at 09:30 Enalapril Maleate (Vasotec) 10 mg DAILY PO Last administered on 01/04/19at 10:11; Admin Dose 10 MG; Start 01/04/19 at 10:00 Labetalol HCl (Normodyne) 200 mg BID PO Last administered on 01/04/19at 10:10; Admin Dose 200 MG; Start 01/04/19 at 09:30 Sertraline HCl (Zoloft) 50 mg DAILY PO Last administered on 01/04/19 10:11; Admin Dose 50 MG; Start 01/04/19 at 09:30 Tamsulosin HCl (Flomax) 0.4 mg DAILY@2100 PO ; Start 01/04/19 at 21:00 SHANTAL COY NP Jan 04, 2019 14:47
--- NOTE | 2019-01-04 15:59 | RADRPT ---
Echocardiogram Report Patient Name: JORI SHERMANPatient ID: [id number] : 1935 (83y 10m)Study Date: 01/04/2019 2:32:33 PM Gender: MAccession #: [id number] Tech: LE Location: [facility] Ref.Physician: AJ GREENBERG Height(Cm): BSA: Weight(Kg): Quality: Technically Difficult StudyOrder Physician: AJ GREENBERG Account #: Procedures: Echocardiographic Report: Transthoracic echocardiogram with complete 2D, M-Mode, and doppler examination. Indications: Evaluate Left Ventricular function, and Cardiomyopathy. Measurements: 2D/M Mode Doppler Measurement Value Normal Range Measurement Value Normal Range LVIDd 2D 4.8 [ 4.2 - 5.8 ] cm AV Mean Danyel 0.8 [ 70.0 - 90.0 ] cm/sec LVIDs 2D 3.4 [ 2.5 - 4.0 ] cm AV Mean PG 2.0 [ 2.0 - 4.0 ] mmHg LVPWd 2D 1.2 [ 0.6 - 1.0 ] cm AV Peak Danyel 1.1 [ 100.0 - 170.0 ] cm/sec IVSd 2D 1.2 [ 0.6 - 1.0 ] cm AV Peak PG 5.0 [ 2.0 - 9.0 ] mmHg EDV 2D 107.0 [ 62.0 - 150.0 ] ml AV VTI 17.7 cm ESV 2D 47.8 [ 21.0 - 61.0 ] ml LVOT Peak Danyel 1.0 [ 70.0 - 110.0 ] cm/sec EF 2D 55.3 [ 52.0 - 72.0 ] percent LVOT Peak PG 4.0 [ 2.0 - 6.0 ] mmHg MV E Peak Danyel 0.6 [ 60.0 - 130.0 ] cm/sec MV A Peak Danyel 0.9 [ 100.0 - 120.0 ] cm/sec MV E/A 0.6 [ 0.8 - 1.5 ] ratio MV Decel Time 173 [ 104 - 258 ] msec Lat E` Danyel 0.1 [ 10.0 - 15.0 ] cm/sec Lateral E/E` 10.8 [ 1.0 - 2.0 ] ratio Med E` Danyel 0.0 cm/sec MV E/A 0.6 [ 0.8 - 1.5 ] ratio Findings: Left Ventricle: Lower limits of normal systolic function. Normal left ventricular cavity size. Ejection fraction is visually estimated at 50 %. Possible thrombus seen at the apex. Tissue Doppler/Mitral Doppler indices are consistent with impaired relaxation (Stage I diastolic dysfunction). These segments of the LV are hypokinetic basal anterior segment and apex. Right Ventricle: Not well visualized. Left Atrium: There is mild enlargement of left atrium. Right Atrium: The right atrium is normal in size. Mitral Valve: Normal appearance and function of the mitral valve with trace regurgitation. Aortic Valve: Normal appearance of the aortic valve. No significant aortic stenosis or insufficiency. Tricuspid Valve: Normal appearance and function of the tricuspid valve with trace regurgitation. Pulmonic Valve: Pulmonic valve not well visualized. Pericardium: Normal pericardium with no significant pericardial effusion. Aorta: Normal aortic root. IVC: The IVC is not well visualized. Conclusions: Lower limits of normal systolic function. Normal left ventricular cavity size. Ejection fraction is visually estimated at 50 %. Tissue Doppler/Mitral Doppler indices are consistent with impaired relaxation (Stage I diastolic dysfunction). These segments of the LV are hypokinetic basal anterior segment and apex. Not well visualized. There is mild enlargement of left atrium. The right atrium is normal in size. No significant valvular stenosis or regurgitation seen. Echo dense structure in left ventricular apex highly suspicious for thrombus. Electronically Signed By: Jori Bird 2019-01-04 15:58:09 PDT
--- NOTE | 2019-01-04 16:49 | CONS ---
Assessment/Plan Assessment/Plan Hospital Course (Demo Recall) Cardiomyopathy with left ventricular ejection fraction 50% High likelihood left apical thrombus History of AICD CAD Colon cancer Weakness and fatigue Patient admitted with weakness and fatigue and found to have leukocytosis. Echocardiogram ordered with incidental left apical thrombus with hypokinesis in the apex I discussed with the patient, he does ambulate with a walker Patient with inconsistencies with history taking, and discussion with primary hospitalist, awaiting further information from primary physician We will in the interim start anticoagulation Consultation Date/Type/Reason Admit Date/Time Jan 03, 2019 at 03:38 Type of Consult Cardiology Reason for Consultation Cardia myopathy Date/Time of Note DATE: 01/04/19 TIME: 16:43 Hx of Present Illness This is an 83-year-old male with past medical history of cardia myopathy status post ICD, colon cancer who was brought to emergency room because of weakness. Patient denies any chest pain or shortness of breath. Denies any palpitations or dizziness. He tells me he does see a sample grader on a regular basis. He does have an ICD. He is feeling better since he first came to the hospital. 12 point review of systems was performed with all pertinent positives and negatives mentioned above and all else is negative Past Medical History Medical History: congestive heart failure, coronary artery disease, hypertension Home Meds Reported Medications Sertraline Hcl* (Sertraline Hcl*) 50 Mg Tablet, 50 MG PO DAILY, #30 TAB 01/03/19 Enalapril Maleate* (Enalapril Maleate*) 10 Mg Tablet, 10 MG PO DAILY, TAB 01/03/19 Cholecalciferol* (Vitamin D3*) 1,000 Unit Tablet, 2000 UNIT PO DAILY, TAB 01/03/19 Labetalol Hcl (Normodyne) 200 Mg Tablet, PO BID, TAB 01/03/19 Tamsulosin Hcl* (Flomax*) 0.4 Mg Cap.er.24h, 0.4 MG PO DAILY, CAP 01/03/19 Aspirin (Aspirin) 81 Mg Chew, 81 MG PO DAILY, TAB.CHEW 01/03/19 Atorvastatin* (Atorvastatin*) 40 Mg Tablet, 20 MG PO QHS, #30 TAB 01/03/19 Medications Current Medications IV Flush (NS 3 ml) 3 ml PER PROTOCOL IV ; Start 01/03/19 at 04:00 Ondansetron HCl (Zofran Inj) 4 mg Q6H PRN IV NAUSEA/VOMITING; Start 01/03/19 at 04:00 Acetaminophen (Tylenol Tab) 650 mg Q6H PRN PO .PAIN 1-3 OR TEMP; Start 01/03/19 at 04:00 Docusate Sodium (Colace) 100 mg Q12H PRN PO .CONSTIPATION; Start 01/03/19 at 04:00 Bisacodyl (Dulcolax) 5 mg DAILY PRN PO .CONSTIPATION; Start 01/03/19 at 04:00 Vancomycin HCl (Vanco Iv Per Pharmacy) VANCOMYCIN PER PHARMACY PER PROTOCOL XX ; Start 01/03/19 at 04:00 Vancomycin HCl 1.25 gm/Sodium Chloride 250 ml @ 83.333 mls/ hr Q24H IVPB Last administered on 01/04/19at 02:03; Admin Dose 83.333 MLS/HR; Start 01/04/19 at 03:00 Miscellaneous Information (*Rx Drug Level Order Reminder*) VANCOMYCIN TROUGH LEVEL 0200 ONCE XX ; Start 01/07/19 at 02:00; Stop 01/07/19 at 02:01 Hydralazine HCl (Apresoline) 10 mg Q4H PRN IV ELEVATED BLOOD PRESSURE Last administered on 01/04/19at 02:03; Admin Dose 10 MG; Start 01/03/19 at 07:19 Enoxaparin Sodium (Lovenox) 40 mg DAILY SC Last administered on 01/04/19at 08:48; Admin Dose 40 MG; Start 01/04/19 at 09:00 Levalbuterol (Xopenex Neb) 1.25 mg Q4H RESP THERAPY PRN HHN WHEEZING; Start at 03:30 Levalbuterol (Xopenex Neb) 0.63 mg Q4H RESP THERAPY PRN HHN shortness of breath; Start 01/04/19 at 08:30 Aspirin (Aspirin) 81 mg DAILY PO Last administered on 01/04/19at 10:10; Admin Dose 81 MG; Start 01/04/19 at 09:30 Atorvastatin Calcium (Lipitor) 20 mg QHS PO ; Start 01/04/19 at 21:00 Cholecalciferol (Vitamin D) 2,000 unit DAILY PO Last administered on 01/04/19at 10:11; Admin Dose 2,000 UNIT; Start 01/04/19 at 09:30 Enalapril Maleate (Vasotec) 10 mg DAILY PO Last administered on 01/04/19at 10:11; Admin Dose 10 MG; Start 01/04/19 at 10:00 Labetalol HCl (Normodyne) 200 mg BID PO Last administered on 01/04/19at 10:10; Admin Dose 200 MG; Start 01/04/19 at 09:30 Sertraline HCl (Zoloft) 50 mg DAILY PO Last administered on 01/04/19at 10:11; Admin Dose 50 MG; Start 01/04/19 at 09:30 Tamsulosin HCl (Flomax) 0.4 mg DAILY@2100 PO ; Start 01/04/19 at 21:00 Cefepime HCl 50 ml @ 100 mls/hr Q12 IVPB ; Start 01/04/19 at 21:00 Allergies: Coded Allergies: No Known Allergy (Unverified , 01/03/19) Past Surgical History Past Surgical Hx: other (Including but not limited to AICD, Chemo-Port) Social History Alcohol Use: none Smoking Status: Never smoker Drug Use: none Exam/Review of Systems Vital Signs Vitals Vital Signs Date Temp Pulse Resp B/P (MAP) Pulse Ox O2 O2 Flow FiO2 Time Delivery Rate 01/04/19 98.0 71 16 100/57 94 Room Air 13:35 (71) 01/04/19 2.0 03:33 Intake and Output 01/03/19 01/03/19 01/04/19 1515:00 23:00 07:00 IntakeIntake Total 520 ml 200 ml 568 ml OutputOutput Total 300 ml 100 ml 900 ml BalanceBalance 220 ml 100 ml -332 ml Exam Constitutional: alert, oriented (To person and place, able to give basic history, no apparent distress) Head: normocephalic Respiratory: other (Coarse breath sounds bilaterally, no wheezing) Cardiovascular: regular rate and rhythm (S1-S2 heard) Gastrointestinal: soft, non-tender, bowel sounds Extremities: other (No significant edema) Labs Result Diagram: 01/04/19 0438 01/04/19 0438 Results 24hrs Laboratory Tests Test 01/04/19 04:38 White Blood Count 23.6 H Red Blood Count 5.54 Hemoglobin 13.9 L Hematocrit 45.5 Mean Corpuscular Volume 82.1 Mean Corpuscular Hemoglobin 25.1 L Mean Corpuscular Hemoglobin Concent 30.5 L Red Cell Distribution Width 16.7 H Platelet Count 146 Mean Platelet Volume 10.4 Immature Granulocytes % 0.700 H Neutrophils % 89.7 H Lymphocytes % 3.1 L Monocytes % 5.8 Eosinophils % 0.4 Basophils % 0.3 Nucleated Red Blood Cells % 0.0 Immature Granulocytes # 0.160 H Neutrophils # 21.2 H Lymphocytes # 0.7 L Monocytes # 1.4 H Eosinophils # 0.1 Basophils # 0.1 Nucleated Red Blood Cells # 0.0 Sodium Level 144 Potassium Level 3.5 Chloride Level 108 Carbon Dioxide Level 25 Anion Gap 11 Blood Urea Nitrogen 23 H Creatinine 1.11 Est Glomerular Filtrat Rate mL/min Glucose Level 121 Hemoglobin A1c 5.3 Calcium Level 9.2 Magnesium Level 2.0 Total Bilirubin 0.7 Direct Bilirubin 0.00 Indirect Bilirubin 0.7 Aspartate Amino Transf (AST/SGOT) 19 Alanine Aminotransferase (ALT/SGPT) 11 L Alkaline Phosphatase 72 Total Protein 7.5 Albumin 4.0 Globulin 3.50 H Albumin/Globulin Ratio 1.14 Triglycerides Level 118 Cholesterol Level 149 LDL Cholesterol, Calculated 89 HDL Cholesterol 36 Cholesterol/HDL Ratio 4.1 Thyroid Stimulating Hormone (TSH) 1.240 Imaging Imaging ECG sinus rhythm at 94 bpm, QRS 92 ms, anterolateral Q waves, nonspecific ST abnormalities Medications Medications Current Medications IV Flush (NS 3 ml) 3 ml PER PROTOCOL IV ; Start 01/03/19 at 04:00 Ondansetron HCl (Zofran Inj) 4 mg Q6H PRN IV NAUSEA/VOMITING; Start 01/03/19 at 04:00 Acetaminophen (Tylenol Tab) 650 mg Q6H PRN PO .PAIN 1-3 OR TEMP; Start 01/03/19 at 04:00 Docusate Sodium (Colace) 100 mg Q12H PRN PO .CONSTIPATION; Start 01/03/19 at 04:00 Bisacodyl (Dulcolax) 5 mg DAILY PRN PO .CONSTIPATION; Start 01/03/19 at 04:00 Vancomycin HCl (Vanco Iv Per Pharmacy) VANCOMYCIN PER PHARMACY PER PROTOCOL XX ; Start 01/03/19 at 04:00 Vancomycin HCl 1.25 gm/Sodium Chloride 250 ml @ 83.333 mls/ hr Q24H IVPB Last administered on 01/04/19at 02:03; Admin Dose 83.333 MLS/HR; Start 01/04/19 at 03:00 Miscellaneous Information (*Rx Drug Level Order Reminder*) VANCOMYCIN TROUGH LEVEL 0200 ONCE XX ; Start 01/07/19 at 02:00; Stop 01/07/19 at 02:01 Hydralazine HCl (Apresoline) 10 mg Q4H PRN IV ELEVATED BLOOD PRESSURE Last administered on 01/04/19at 02:03; Admin Dose 10 MG; Start 01/03/19 at 07:19 Enoxaparin Sodium (Lovenox) 40 mg DAILY SC Last administered on 01/04/19at 08:48; Admin Dose 40 MG; Start 01/04/19 at 09:00 Levalbuterol (Xopenex Neb) 1.25 mg Q4H RESP THERAPY PRN HHN WHEEZING; Start 01/04/19 at 03:30 Levalbuterol (Xopenex Neb) 0.63 mg Q4H RESP THERAPY PRN HHN shortness of breath; Start 01/04/19 at 08:30 Aspirin (Aspirin) 81 mg DAILY PO Last administered on 01/04/19at 10:10; Admin Do se 81 MG; Start 01/04/19 at 09:30 Atorvastatin Calcium (Lipitor) 20 mg QHS PO ; Start 01/04/19 at 21:00 Cholecalciferol (Vitamin D) 2,000 unit DAILY PO Last administered on 01/04/19at 10:11; Admin Dose 2,000 UNIT; Start 01/04/19 at 09:30 Enalapril Maleate (Vasotec) 10 mg DAILY PO Last administered on 01/04/19at 10:11; Admin Dose 10 MG; Start 01/04/19 at 10:00 Labetalol HCl (Normodyne) 200 mg BID PO Last administered on 01/04/19at 10:10; Admin Dose 200 MG; Start 01/04/19 at 09:30 Sertraline HCl (Zoloft) 50 mg DAILY PO Last administered on 01/04/19at 10:11; Admin Dose 50 MG; Start 01/04/19 at 09:30 Tamsulosin HCl (Flomax) 0.4 mg DAILY@2100 PO ; Start 01/04/19 at 21:00 Cefepime HCl 50 ml @ 100 mls/hr Q12 IVPB ; Start 01/04/19 at 21:00 Jori Bird DO Jan 04, 2019 16:49
[2019-01-04] MEDS: ATORVASTATIN 20 MG TAB PO SCH (21:33)
[2019-01-04] MEDS: TAMSULOSIN (SR) 0.4 MG CAP PO SCH (21:33)
[2019-01-04] MEDS: CEFEPIME 1GM/50 ML (PMX) 50 ML IVPB SCH (21:35)
[2019-01-04] MEDS: ENOXAPARIN 100 MG/ML SYG SC SCH (21:38)
[2019-01-05 02:50] VITALS: BP 119/70; PULSE 72; RESP 16
[2019-01-05] MEDS: VANCOMYCIN HCL 1.25 GM in SOD CHLORIDE 0.9% 250 ML IVPB SCH (03:17)
[2019-01-05 07:15] VITALS: BP 146/91; PULSE 77; RESP 16
[2019-01-05] MEDS: ASPIRIN 81 MG TAB PO SCH (08:13)
[2019-01-05] MEDS: SERTRALINE 50 MG TAB PO SCH (08:13)
[2019-01-05] MEDS: ENALAPRIL 10 MG TAB PO SCH (08:13)
[2019-01-05] MEDS: CHOLECALCIFEROL 1,000 UNIT TAB PO SCH (08:14)
[2019-01-05] MEDS: CEFEPIME 1GM/50 ML (PMX) 50 ML IVPB SCH (08:14)
[2019-01-05] MEDS: LABETALOL 200 MG TAB PO SCH ×2 (08:14→21:23)
[2019-01-05] MEDS: ENOXAPARIN 100 MG/ML SYG SC SCH ×2 (08:15→21:24)
--- NOTE | 2019-01-05 13:55 | PN ---
Date/Time of Note Date/Time of Note DATE: 01/05/19 TIME: 13:41 Objective Vitals Vital Signs Date Temp Pulse Resp B/P (MAP) Pulse Ox O2 O2 Flow FiO2 Time Delivery Rate 01/05/19 Nasal 2.0 08:10 Cannula 01/05/19 98.2 77 16 146/91 97 07:15 (109) Intake and Output 01/04/19 01/04/19 01/05/19 1515:00 23:00 07:00 IntakeIntake Total 100 ml 240 ml OutputOutput Total 600 ml 300 ml BalanceBalance -500 ml -60 ml Results Result Diagram: 01/05/19 0457 01/05/19 0457 Medications Medications Current Medications IV Flush (NS 3 ml) 3 ml PER PROTOCOL IV ; Start 01/03/19 at 04:00 Ondansetron HCl (Zofran Inj) 4 mg Q6H PRN IV NAUSEA/VOMITING; Start 01/03/19 at 04:00 Acetaminophen (Tylenol Tab) 650 mg Q6H PRN PO .PAIN 1-3 OR TEMP; Start 01/03/19 at 04:00 Docusate Sodium (Colace) 100 mg Q12H PRN PO .CONSTIPATION; Start 01/03/19 at 04:00 Bisacodyl (Dulcolax) 5 mg DAILY PRN PO .CONSTIPATION Last administered on 01/05/19at 08:13; Admin Dose 5 MG; Start 01/03/19 at 04:00 Vancomycin HCl (Vanco Iv Per Pharmacy) VANCOMYCIN PER PHARMACY PER PROTOCOL XX ; Start 01/03/19 at 04:00 Vancomycin HCl 1.25 gm/Sodium Chloride 250 ml @ 83.333 mls/ hr Q24H IVPB Last administered on 01/05/19at 03:17; Admin Dose 83.333 MLS/HR; Start 01/04/19 at 03:00 Miscellaneous Information (*Rx Drug Level Order Reminder*) VANCOMYCIN TROUGH LEVEL 0200 ONCE XX ; Start 01/07/19 at 02:00; Stop 01/07/19 at 02:01 Hydralazine HCl (Apresoline) 10 mg Q4H PRN IV ELEVATED BLOOD PRESSURE Last administered on 01/04/19at 02:03; Admin Dose 10 MG; Start 01/03/19 at 07:19 Levalbuterol (Xopenex Neb) 1.25 mg Q4H RESP THERAPY PRN HHN WHEEZING; Start 01/04/19 at 03:30 Levalbuterol (Xopenex Neb) 0.63 mg Q4H RESP THERAPY PRN HHN shortness of ruba th; Start 01/04/19 at 08:30 Aspirin (Aspirin) 81 mg DAILY PO Last administered on 01/05/19 08:13; Admin Dose 81 MG; Start 01/04/19 at 09:30 Atorvastatin Calcium (Lipitor) 20 mg QHS PO Last administered on 01/04/19 21:33; Admin Dose 20 MG; Start 01/04/19 at 21:00 Cholecalciferol (Vitamin D) 2,000 unit DAILY PO Last administered on 01/05/19 08:14; Admin Dose 2,000 UNIT; Start 01/04/19 at 09:30 Enalapril Maleate (Vasotec) 10 mg DAILY PO Last administered on 01/05/19 08:13; Admin Dose 10 MG; Start 01/04/19 at 10:00 Labetalol HCl (Normodyne) 200 mg BID PO Last administered on 01/05/19 08:14; Admin Dose 200 MG; Start 01/04/19 at 09:30 Sertraline HCl (Zoloft) 50 mg DAILY PO Last administered on 01/05/19 08:13; Admin Dose 50 MG; Start 01/04/19 at 09:30 Tamsulosin HCl (Flomax) 0.4 mg DAILY@2100 PO Last administered on 01/04/19 21:33; Admin Dose 0.4 MG; Start 01/04/19 at 21:00 Cefepime HCl 50 ml @ 100 mls/hr Q12 IVPB Last administered on 01/05/19 08:14; Admin Dose 100 MLS/HR; Start 01/04/19 at 21:00 Enoxaparin Sodium (Lovenox) 85 mg Q12 SC Last administered on 01/05/19 08:15; Admin Dose 85 MG; Start 01/04/19 at 21:00 VTE Prophylaxis Risk score (from Nsg)>0 risk: 7 SCD applied (from Nsg): No SCD contraindication: other Lines/Catheters IV Catheter Type: Calderon in Place: No Assessment/Plan Hospital Course Subjective No acute complaints Objective Physical exam General: Patient is laying in bed and answers questions appropriately Mentation: Patient is alert and oriented 4, Head: Normocephalic atraumatic Eyes: EOMI, pupils reactive to light Neck: Supple, nontender, midline Respiratory: Clear to auscultation bilaterally Cardiovascular: regular rate, no obvious murmurs Gastrointestinal: non-tender to palpation, bowel sounds heard. Neurological: Moves all extremities spontaneously Skin: No new skin lesions Assessment/Plan 1. SIRS, unknown source - WBC trending down - ID consultation appreciated - Blood culture positives but may be contaminant. repeat cultures done. - continue broad spectrum antibiotics for now atrial thrombus -on lovenox per cardiology 2. CAD - pacer/AICD in placed - restarted home medications 3. Generalized weakness - per GF patient usually sleeps all day and is prone to falls - PT consulted for evaluation 4. h/o Colon cancer 2012 - stable 5. Mild cognitive impairment - patient remains pleasant 6. Disposition -We will await PT recommendations for discharge to half-way facility versus home with home health PT. Patient may be fall risk. Will also need to determine Coumadin for patient outpatient. DONALDO ANDERSON Jan 05, 2019 13:55
[2019-01-05 14:42] VITALS: BP 110/66; PULSE 64; RESP 16
--- NOTE | 2019-01-05 15:13 | CONS ---
Assessment/Plan Assessment/Plan Hospital Course (Demo Recall) Patient is alert feels good denies pain no fevers overnight WBC 11.5 platelets 124 neutrophils 72.7 BUN 27 creatinine 1.28 Urine culture grew E. coli, blood culture grew coag negative staph species 1 out of 2 sets. Repeat blood cultures negative Antimicrobials: Vancomycin, cefepime Chest x-ray this morning revealed right hemidiaphragm remains elevated with mild patchy left basilar atelectasis Antimicrobials: Vancomycin Zosyn Physical examination: Well-developed well-nourished elderly white man who is alert in no distress. Head atraumatic normocephalic neck is supple chest rise symmetrical breath sounds diminished bases heart S1-S2 abdomen soft bowel sounds present Assessment: 1. SIRS 2. Urinary tract infection, gram-negative rods 3. Bacteremia cw contaminant 4. Possible pneumonia 5. Coronary artery disease with a history of AICD 6. History of colon cancer Plan: Doing better, WBC trending down, blood cultures consistent with contaminant, will change antibiotics to Rocephin Consultation Date/Type/Reason Admit Date/Time Jan 03, 2019 at 03:38 Initial Consult Date Type of Consult id Date/Time of Note DATE: 01/05/19 TIME: 15:10 Exam/Review of Systems Exam Vitals Vital Signs Date Temp Pulse Resp B/P (MAP) Pulse Ox O2 O2 Flow FiO2 Time Delivery Rate 01/05/19 97.7 64 16 110/66 94 Room Air 14:42 (81) 01/05/19 2.0 08:10 Intake and Output 01/04/19 01/04/19 01/05/19 1515:00 23:00 07:00 IntakeIntake Total 100 ml 240 ml OutputOutput Total 600 ml 300 ml BalanceBalance -500 ml -60 ml Results Result Diagram: 01/05/19 0457 01/05/19 0457 Results 24hrs Laboratory Tests Test 01/05/19 04:57 White Blood Count 11.5 #H Red Blood Count 5.02 Hemoglobin 12.8 L Hematocrit 42.4 Mean Corpuscular Volume 84.5 Mean Corpuscular Hemoglobin 25.5 L Mean Corpuscular Hemoglobin Concent 30.2 L Red Cell Distribution Width 17.0 H Platelet Count 124 L Mean Platelet Volume 10.6 H Immature Granulocytes % 0.600 H Neutrophils % 72.7 Lymphocytes % 14.5 L Monocytes % 9.1 Eosinophils % 2.4 Basophils % 0.7 Nucleated Red Blood Cells % 0.0 Immature Granulocytes # 0.070 H Neutrophils # 8.3 H Lymphocytes # 1.7 Monocytes # 1.1 H Eosinophils # 0.3 Basophils # 0.1 Nucleated Red Blood Cells # 0.0 Sodium Level 142 Potassium Level 3.6 Chloride Level 107 Carbon Dioxide Level 28 Anion Gap 7 Blood Urea Nitrogen 27 H Creatinine 1.28 H Glucose Level 105 Calcium Level 8.9 Phosphorus Level 4.6 Magnesium Level 2.2 Albumin 3.4 Medications Medication Current Medications IV Flush (NS 3 ml) 3 ml PER PROTOCOL IV ; Start 01/03/19 at 04:00 Ondansetron HCl (Zofran Inj) 4 mg Q6H PRN IV NAUSEA/VOMITING; Start 01/03/19 at 04:00 Acetaminophen (Tylenol Tab) 650 mg Q6H PRN PO .PAIN 1-3 OR TEMP; Start 01/03/19 at 04:00 Docusate Sodium (Colace) 100 mg Q12H PRN PO .CONSTIPATION; Start 01/03/19 at 04:00 Bisacodyl (Dulcolax) 5 mg DAILY PRN PO .CONSTIPATION Last administered on 01/05/19at 08:13; Admin Dose 5 MG; Start 01/03/19 at 04:00 Vancomycin HCl (Vanco Iv Per Pharmacy) VANCOMYCIN PER PHARMACY PER PROTOCOL XX ; Start 01/03/19 at 04:00 Vancomycin HCl 1.25 gm/Sodium Chloride 250 ml @ 83.333 mls/ hr Q24H IVPB Last administered on 01/05/19at 03:17; Admin Dose 83.333 MLS/HR; Start 01/04/19 at 03:00 Miscellaneous Information (*Rx Drug Level Order Reminder*) VANCOMYCIN TROUGH LEVEL 0200 ONCE XX ; Start 01/07/19 at 02:00; Stop 01/07/19 at 02:01 Hydralazine HCl (Apresoline) 10 mg Q4H PRN IV ELEVATED BLOOD PRESSURE Last administered on 01/04/19at 02:03; Admin Dose 10 MG; Start 01/03/19 at 07:19 Levalbuterol (Xopenex Neb) 1.25 mg Q4H RESP THERAPY PRN HHN WHEEZING; Start 01/04/19 at 03:30 Levalbuterol (Xopenex Neb) 0.63 mg Q4H RESP THERAPY PRN HHN shortness of breath; Start 01/04/19 at 08:30 Aspirin (Aspirin) 81 mg DAILY PO Last administered on 01/05/19 08:13; Admin Dose 81 MG; Start 01/04/19 at 09:30 Atorvastatin Calcium (Lipitor) 20 mg QHS PO Last administered on 01/04/19 21:33; Admin Dose 20 MG; Start 01/04/19 at 21:00 Cholecalciferol (Vitamin D) 2,000 unit DAILY PO Last administered on 01/05/19 08:14; Admin Dose 2,000 UNIT; Start 01/04/19 at 09:30 Enalapril Maleate (Vasotec) 10 mg DAILY PO Last administered on 01/05/19 08:13 ; Admin Dose 10 MG; Start 01/04/19 at 10:00 Labetalol HCl (Normodyne) 200 mg BID PO Last administered on 01/05/19 08:14; Admin Dose 200 MG; Start 01/04/19 at 09:30 Sertraline HCl (Zoloft) 50 mg DAILY PO Last administered on 01/05/19 08:13; Admin Dose 50 MG; Start 01/04/19 at 09:30 Tamsulosin HCl (Flomax) 0.4 mg DAILY@2100 PO Last administered on 01/04/19 21:33; Admin Dose 0.4 MG; Start 01/04/19 at 21:00 Cefepime HCl 50 ml @ 100 mls/hr Q12 IVPB Last administered on 01/05/19 08:14; Admin Dose 100 MLS/HR; Start 01/04/19 at 21:00 Enoxaparin Sodium (Lovenox) 85 mg Q12 SC Last administered on 01/05/19 08:15; Admin Dose 85 MG; Start 01/04/19 at 21:00 SHANTAL COY NP Jan 05, 2019 15:13
[2019-01-05] MEDS: CEFTRIAXONE 1 GM/50 ML (PMX) 50 ML IVPB SCH (15:42)
[2019-01-05 19:45] VITALS: BP 112/56; PULSE 65; RESP 18
--- NOTE | 2019-01-05 19:51 | CONS ---
Assessment/Plan Assessment/Plan Hospital Course (Demo Recall) Cardiomyopathy with left ventricular ejection fraction 50% High likelihood left apical thrombus History of AICD CAD Colon cancer Weakness and fatigue Patient admitted with weakness and fatigue and found to have leukocytosis. Echocardiogram ordered with incidental left apical thrombus with hypokinesis in the apex I discussed with the patient, he does ambulate with a walker, spoke to nurse, walks with minimal assistance Start coumadin, lovenox for bridging Consultation Date/Type/Reason Admit Date/Time Jan 03, 2019 at 03:38 Initial Consult Date Type of Consult Cardiology Date/Time of Note DATE: 01/05/19 TIME: 19:49 24 HR Interval Summary Free Text/Dictation no sob,cp,palp Exam/Review of Systems Vital Signs Vitals Vital Signs Date Temp Pulse Resp B/P (MAP) Pulse Ox O2 O2 Flow FiO2 Time Delivery Rate 01/05/19 97.7 64 16 110/66 94 Room Air 14:42 (81) 01/05/19 2.0 08:10 Intake and Output 01/04/19 01/04/19 01/05/19 1515:00 23:00 07:00 IntakeIntake Total 100 ml 490 ml OutputOutput Total 600 ml 300 ml BalanceBalance -500 ml 190 ml Exam Constitutional: alert, oriented (nad) Head: normocephalic Respiratory: clear to auscultation, normal air movement Cardiovascular: regular rate and rhythm (s1s2) Gastrointestinal: soft, non-tender, bowel sounds Extremities: edema Labs Result Diagram: 01/05/19 0457 01/05/19 0457 Results 24hrs Laboratory Tests Test 01/05/19 04:57 01/05/19 16:40 White Blood Count 11.5 #H Red Blood Count 5.02 Hemoglobin 12.8 L Hematocrit 42.4 Mean Corpuscular Volume 84.5 Mean Corpuscular Hemoglobin 25.5 L Mean Corpuscular Hemoglobin Concent 30.2 L Red Cell Distribution Width 17.0 H Platelet Count 124 L Mean Platelet Volume 10.6 H Immature Granulocytes % 0.600 H Neutrophils % 72.7 Lymphocytes % 14.5 L Monocytes % 9.1 Eosinophils % 2.4 Basophils % 0.7 Nucleated Red Blood Cells % 0.0 Immature Granulocytes # 0.070 H Neutrophils # 8.3 H Lymphocytes # 1.7 Monocytes # 1.1 H Eosinophils # 0.3 Basophils # 0.1 Nucleated Red Blood Cells # 0.0 Sodium Level 142 Potassium Level 3.6 Chloride Level 107 Carbon Dioxide Level 28 Anion Gap 7 Blood Urea Nitrogen 27 H Creatinine 1.28 H Glucose Level 105 Calcium Level 8.9 Phosphorus Level 4.6 Magnesium Level 2.2 Albumin 3.4 Urine Color YELLOW Urine Clarity SLIGHTLY CLOUDY A Urine pH 5.0 Urine Specific Bow 1.028 Urine Ketones TRACE A Urine Nitrite NEGATIVE Urine Bilirubin NEGATIVE Urine Urobilinogen NEGATIVE Urine Leukocyte Esterase NEGATIVE Urine Microscopic RBC 2 Urine Microscopic WBC 1 Urine Mucus FEW A Urine Hemoglobin NEGATIVE Urine Random Creatinine 264.20 Urine Random Sodium 19 L Urine Glucose NEGATIVE Urine Total Protein 11.0 Medications Medications Current Medications IV Flush (NS 3 ml) 3 ml PER PROTOCOL IV ; Start 01/03/19 at 04:00 Ondansetron HCl (Zofran Inj) 4 mg Q6H PRN IV NAUSEA/VOMITING; Start 01/03/19 at 04:00 Acetaminophen (Tylenol Tab) 650 mg Q6H PRN PO .PAIN 1-3 OR TEMP; Start 01/03/19 at 04:00 Docusate Sodium (Colace) 100 mg Q12H PRN PO .CONSTIPATION; Start 01/03/19 at 04:00 Bisacodyl (Dulcolax) 5 mg DAILY PRN PO .CONSTIPATION Last administered on 01/05/19at 08:13; Admin Dose 5 MG; Start 01/03/19 at 04:00 Hydralazine HCl (Apresoline) 10 mg Q4H PRN IV ELEVATED BLOOD PRESSURE Last administered on 01/04/19at 02:03; Admin Dose 10 MG; Start 01/03/19 at 07:19 Levalbuterol (Xopenex Neb) 1.25 mg Q4H RESP THERAPY PRN HHN WHEEZING; Start 01/04/19 at 03:30 Levalbuterol (Xopenex Neb) 0.63 mg Q4H RESP THERAPY PRN HHN shortness of ashanti ath; Start 01/04/19 at 08:30 Aspirin (Aspirin) 81 mg DAILY PO Last administered on 01/05/19at 08:13; Admin Dose 81 MG; Start 01/04/19 at 09:30 Atorvastatin Calcium (Lipitor) 20 mg QHS PO Last administered on 01/04/19at 21:33; Admin Dose 20 MG; Start 01/04/19 at 21:00 Cholecalciferol (Vitamin D) 2,000 unit DAILY PO Last administered on 01/05/19 08:14; Admin Dose 2,000 UNIT; Start 01/04/19 at 09:30 Enalapril Maleate (Vasotec) 10 mg DAILY PO Last administered on 01/05/19 08:13; Admin Dose 10 MG; Start 01/04/19 at 10:00 Labetalol HCl (Normodyne) 200 mg BID PO Last administered on 01/05/19 08:14; Admin Dose 200 MG; Start 01/04/19 at 09:30 Sertraline HCl (Zoloft) 50 mg DAILY PO Last administered on 01/05/19 08:13; Admin Dose 50 MG; Start 01/04/19 at 09:30 Tamsulosin HCl (Flomax) 0.4 mg DAILY@2100 PO Last administered on 01/04/19 21:33; Admin Dose 0.4 MG; Start 01/04/19 at 21:00 Enoxaparin Sodium (Lovenox) 85 mg Q12 SC Last administered on 01/05/19 08:15; Admin Dose 85 MG; Start 01/04/19 at 21:00 Ceftriaxone Sodium 50 ml @ 100 mls/hr Q24H IVPB Last administered on 01/05/19 15:42; Admin Dose 100 MLS/HR; Start 01/05/19 at 15:30 Jori Bird DO Jan 05, 2019 19:50
--- NOTE | 2019-01-05 20:05 | CONS ---
DATE OF ADMISSION: 01/03/2019 DATE OF CONSULTATION: HISTORY OF PRESENT ILLNESS: The patient is an 83-year-old gentleman with past medical history of hyp ertension, coronary artery, pacemaker, AICD, who presented from home with generalized weakness and di fficulty walking. In the course of the workup, was noted to have systemic inflammatory response synd natacha, hypertension, coronary artery disease. The patient was admitted to the hospital. The patient was started on broad-spectrum antibiotics. Echocardiogram ordered which demonstrated a left apical t hrombus with hypokinesis of the apex. The patient was admitted with Enalapril and hydralazine and no gail to have azotemia and acute kidney injury. Creatinine on admission was 1.1 and went up to 1.3 tod ay. Continues good urine output since admission. PAST MEDICAL HISTORY: As above. CURRENT MEDICATIONS: 1. Ceftriaxone. 2. Lipitor. 3. Flomax. 4. Lovenox. 5. Vasotec. 6. Aspirin. 7. Labetalol. 8. Zoloft. 9. Xopenex. 10. Hydralazine. 11. Tylenol. 12. Dulcolax. ALLERGIES: PATIENT HAS NO KNOWN ALLERGIES. SOCIAL HISTORY: Does not smoke, drink or do drugs. FAMILY HISTORY: No history of kidney disease. REVIEW OF SYSTEMS: A 14-point review of systems attempted and negative. PHYSICAL EXAMINATION: VITAL SIGNS: Temperature 97.8, blood pressure 110/66. HEENT: Normocephalic, atraumatic. Pupils equal and reactive to light. Oropharynx is moist. NECK: Supple. HEART: Regular rate and rhythm. LUNGS: Clear to auscultation. ABDOMEN: Soft, nontender, nondistended. Bowel sounds are present. LABORATORY EVALUATION: Shows sodium 140, potassium 3.6, BUN 27, creatinine 1.3. White count 11.5, h emoglobin 13, hematocrit 42. UA is reviewed on microscopy. Chest x-ray was reviewed by the radiolog ist. IMPRESSION: 1. Acute kidney injury. Nonoliguric, 1+ proteinuria on dipstick, suddenly worse, most likely relate d to hemodynamics. Rule out acute interstitial nephritis. Start by checking urine studies, serial l abs, avoid nephrotoxins. All meds dosed appropriately for renal function. Check a renal ultrasound. Avoid nephrotoxic medications. 2. Systemic inflammatory response syndrome, unknown source. White count is trending down. Infectio us disease is following. Follow up cultures. 3. Atrial thrombus on Lovenox per cardiology. 4. History of coronary artery disease, likely cardiomyopathy in light of automatic implantable cardi overter-defibrillator, monitor carefully. Treat blood pressure secondary to medication optimization. 5. Generalized weakness. Physical therapy consulted, may be more chronic. 6. History of colon cancer in 2002, reportedly in remission. Dictated By: CHELSEY FABIAN/JEYSON Conf#: [id number] DID#: [id number]
[2019-01-05] MEDS ORDERED: WARFARIN 7.5 MG TAB PO ONE (21:00)
[2019-01-05] MEDS: TAMSULOSIN (SR) 0.4 MG CAP PO SCH (21:23)
[2019-01-05] MEDS: ATORVASTATIN 20 MG TAB PO SCH (21:23)
[2019-01-06 01:44] VITALS: BP 116/60; PULSE 69; RESP 17
[2019-01-06 07:36] VITALS: BP 125/91; PULSE 72; RESP 18
[2019-01-06] MEDS ORDERED: METOPROLOL (XL) 25 MG TAB PO SCH (09:00)
[2019-01-06] MEDS: SERTRALINE 50 MG TAB PO SCH (09:09)
[2019-01-06] MEDS: CHOLECALCIFEROL 1,000 UNIT TAB PO SCH (09:09)
[2019-01-06] MEDS: LABETALOL 200 MG TAB PO SCH ×2 (09:10→20:54)
[2019-01-06] MEDS: LISINOPRIL 5 MG TAB PO SCH (09:10)
--- NOTE | 2019-01-06 11:07 | CONS ---
Consult Date/Type/Reason Admit Date/Time Jan 03, 2019 at 03:38 Initial Consult Date Date/Time of Note DATE: 01/06/19 TIME: 11:01 Subjective 83-year-old gentleman with past medical history of hypertension, coronary artery, pacemaker, AICD, who presented from home with generalized weakness and difficulty walking. In the course of the workup, was noted to have systemic inflammatory response syndrome, hypertension, coronary artery disease. The patient was admitted to the hospital. The patient was started on broad-spectrum antibiotics. Echocardiogram ordered which demonstrated a left apical thrombus with hypokinesis of the apex. The patient was admitted with Enalapril and hydralazine and noted to have azotemia and acute kidney injury. Creatinine on admission was 1.1 and went up to 1.3 . Continues good urine output since admission. PHYSICAL EXAMINATION: HEENT: Normocephalic, atraumatic. Pupils equal and reactive to light. Oropharynx is moist. NECK: Supple. HEART: Regular rate and rhythm. LUNGS: Clear to auscultation. ABDOMEN: Soft, nontender, nondistended. Bowel sounds are present. Objective Vitals Vital Signs Date Temp Pulse Resp B/P (MAP) Pulse Ox O2 O2 Flow FiO2 Time Delivery Rate 01/06/19 98.0 72 18 125/91 91 Room Air 07:36 (102) 01/06/19 21 05:38 01/05/19 2.0 08:10 Intake and Output 01/05/19 01/05/19 01/06/19 1515:00 23:00 07:00 IntakeIntake Total 50 ml 450 ml OutputOutput Total 75 ml BalanceBalance 50 ml 450 ml -75 ml Results/Medications Result Diagram: 01/06/19 0424 01/06/19 0424 Results 24 hrs Laboratory Tests Test 01/05/19 16:40 01/06/19 04:24 Urine Color YELLOW Urine Clarity SLIGHTLY CLOUDY A Urine pH 5.0 Urine Specific [place] 1.028 Urine Ketones TRACE A Urine Nitrite NEGATIVE Urine Bilirubin NEGATIVE Urine Urobilinogen NEGATIVE Urine Leukocyte Esterase NEGATIVE Urine Microscopic RBC 2 Urine Microscopic WBC 1 Urine Mucus FEW A Urine Hemoglobin NEGATIVE Urine Random Creatinine 264.20 Urine Random Sodium 19 L Urine Glucose NEGATIVE Urine Total Protein 11.0 White Blood Count 11.2 H Red Blood Count 4.79 Hemoglobin 12.2 L Hematocrit 40.0 L Mean Corpuscular Volume 83.5 Mean Corpuscular Hemoglobin 25.5 L Mean Corpuscular Hemoglobin Concent 30.5 L Red Cell Distribution Width 17.0 H Platelet Count 136 L Mean Platelet Volume 10.8 H Immature Granulocytes % 0.800 H Neutrophils % 75.2 Lymphocytes % 13.2 L Monocytes % 7.4 Eosinophils % 2.9 Basophils % 0.5 Nucleated Red Blood Cells % 0.0 Immature Granulocytes # 0.090 H Neutrophils # 8.4 H Lymphocytes # 1.5 Monocytes # 0.8 Eosinophils # 0.3 Basophils # 0.1 Nucleated Red Blood Cells # 0.0 Prothrombin Time 14.9 Prothrombin Time Ratio 1.2 INR International Normalized Ratio 1.16 Sodium Level 141 Potassium Level 3.9 Chloride Level 108 Carbon Dioxide Level 25 Anion Gap 8 Blood Urea Nitrogen 31 H Creatinine 1.10 Glucose Level 97 Calcium Level 9.1 Phosphorus Level 4.4 Magnesium Level 2.1 Albumin 3.4 Home Meds Reported Medications Sertraline Hcl* (Sertraline Hcl*) 50 Mg Tablet, 50 MG PO DAILY, #30 TAB 01/03/19 Enalapril Maleate* (Enalapril Maleate*) 10 Mg Tablet, 10 MG PO DAILY, TAB 01/03/19 Cholecalciferol* (Vitamin D3*) 1,000 Unit Tablet, 2000 UNIT PO DAILY, TAB 01/03/19 Labetalol Hcl (Normodyne) 200 Mg Tablet, PO BID, TAB 01/03/19 Tamsulosin Hcl* (Flomax*) 0.4 Mg Cap.er.24h, 0.4 MG PO DAILY, CAP 01/03/19 Aspirin (Aspirin) 81 Mg Chew, 81 MG PO DAILY, TAB.CHEW 01/03/19 Atorvastatin* (Atorvastatin*) 40 Mg Tablet, 20 MG PO QHS, #30 TAB 01/03/19 Medications Current Medications IV Flush (NS 3 ml) 3 ml PER PROTOCOL IV ; Start 01/03/19 at 04:00 Ondansetron HCl (Zofran Inj) 4 mg Q6H PRN IV NAUSEA/VOMITING; Start 01/03/19 at 04:00 Acetaminophen (Tylenol Tab) 650 mg Q6H PRN PO .PAIN 1-3 OR TEMP; Start 01/03/19 at 04:00 Docusate Sodium (Colace) 100 mg Q12H PRN PO .CONSTIPATION; Start 01/03/19 at 04:00 Bisacodyl (Dulcolax) 5 mg DAILY PRN PO .CONSTIPATION Last administered on 01/05/19 08:13; Admin Dose 5 MG; Start 01/03/19 at 04:00 Hydralazine HCl (Apresoline) 10 mg Q4H PRN IV ELEVATED BLOOD PRESSURE Last administered on 01/04/19 02:03; Admin Dose 10 MG; Start 01/03/19 at 07:19 Levalbuterol (Xopenex Neb) 1.25 mg Q4H RESP THERAPY PRN HHN WHEEZING; Start 01/04/19 at 03:30 Levalbuterol (Xopenex Neb) 0.63 mg Q4H RESP THERAPY PRN HHN shortness of b reath; Start 01/04/19 at 08:30 Aspirin (Aspirin) 81 mg DAILY PO Last administered on 01/05/19 08:13; Admin Dose 81 MG; Start 01/04/19 at 09:30 Atorvastatin Calcium (Lipitor) 20 mg QHS PO Last administered on 01/05/19 21:23; Admin Dose 20 MG; Start 01/04/19 at 21:00 Cholecalciferol (Vitamin D) 2,000 unit DAILY PO Last administered on 01/06/19 09:09; Admin Dose 2,000 UNIT; Start 01/04/19 at 09:30 Labetalol HCl (Normodyne) 200 mg BID PO Last administered on 01/06/19 09:10; Admin Dose 200 MG; Start 01/04/19 at 09:30 Sertraline HCl (Zoloft) 50 mg DAILY PO Last administered on 01/06/19 09:09; Admin Dose 50 MG; Start 01/04/19 at 09:30 Tamsulosin HCl (Flomax) 0.4 mg DAILY@2100 PO Last administered on 01/05/19 21:23; Admin Dose 0.4 MG; Start 01/04/19 at 21:00 Enoxaparin Sodium (Lovenox) 85 mg Q12 SC Last administered on 01/05/19 21:24; Admin Dose 85 MG; Start 01/04/19 at 21:00 Ceftriaxone Sodium 50 ml @ 100 mls/hr Q24H IVPB Last administered on 7/15/19at 15:42; Admin Dose 100 MLS/HR; Start 01/05/19 at 15:30 Lisinopril (Zestril) 5 mg DAILY PO Last administered on 01/06/19at 09:10; Admin Dose 5 MG; Start 01/06/19 at 09:00 Metoprolol Succinate (Toprol Xl) 25 mg DAILY PO ; Start 01/06/19 at 09:00; Status UNV Warfarin Sodium (Coumadin) 5 mg DAILY@17 PO ; Start 01/06/19 at 17:00 Miscellaneous Information (*Order Clarification Bulletin) MEDICATION REQUIRES CLARIFICATI... Q8H XX ; Start 01/05/19 at 20:30; Stop 01/07/19 at 23:59 Assessment/Plan Hospital Course (Demo Recall) 1. Acute kidney injury. Nonoliguric, 1+ proteinuria on dipstick, suddenly worse, most likely related to hemodynamics. Rule out acute interstitial nephritis. now improving - fu urine studies, serial labs, avoid nephrotoxins. All meds dosed appropriately for renal function. - better this am. watch for diuretic phase of shital with electrolyte wasting. - all meds dosed ok. 2. Systemic inflammatory response syndrome, unknown source. White count is trending down. Infectious disease is following. Follow up cultures. 3. Atrial thrombus on Lovenox per cardiology. bridge to coumadin. 4. History of coronary artery disease, likely cardiomyopathy in light of automatic implantable cardioverter-defibrillator, monitor carefully. Treat blood pressure secondary to medication optimization. 5. Generalized weakness. Physical therapy consulted, may be more chronic. 6. History of colon cancer in 2002, reportedly in remission. CHELSEY GUADARRAMA MD Jan 06, 2019 11:07
[2019-01-06] MEDS: ASPIRIN 81 MG TAB PO SCH (11:15)
[2019-01-06] MEDS: ENOXAPARIN 100 MG/ML SYG SC SCH ×2 (11:16→20:55)
--- NOTE | 2019-01-06 12:58 | CONS ---
Assessment/Plan Assessment/Plan Hospital Course (Demo Recall) No acute changes, looks comfortable, no fevers Urine culture grew E. coli, blood culture grew coag negative staph species 1 out of 2 sets. Repeat blood cultures negative Antimicrobials: Rocephin Chest x-ray this morning revealed right hemidiaphragm remains elevated with mild patchy left basilar atelectasis Antimicrobials: Vancomycin Zosyn Physical examination: Well-developed well-nourished elderly white man who is alert in no distress. Head atraumatic normocephalic neck is supple chest rise symmetrical breath sounds diminished bases heart S1-S2 abdomen soft bowel sounds present Assessment: 1. SIRS 2. Urinary tract infection, gram-negative rods 3. Bacteremia cw contaminant 4. Possible pneumonia 5. Coronary artery disease with a history of AICD 6. History of colon cancer Plan: Remains stable, continue antibiotics ok dc on oral Keflex or Levaquin to complete 7 more days Consultation Date/Type/Reason Admit Date/Time Jan 03, 2019 at 03:38 Initial Consult Date Type of Consult id Date/Time of Note DATE: 01/06/19 TIME: 12:56 Exam/Review of Systems Exam Vitals Vital Signs Date Temp Pulse Resp B/P (MAP) Pulse Ox O2 O2 Flow FiO2 Time Delivery Rate 01/06/19 98.0 72 18 125/91 91 Room Air 07:36 (102) 01/06/19 21 05:38 01/05/19 2.0 08:10 Intake and Output 01/05/19 01/05/19 01/06/19 1414:59 22:59 06:59 IntakeIntake Total 300 ml 450 ml OutputOutput Total 75 ml BalanceBalance 300 ml 450 ml -75 ml Results Result Diagram: 01/06/19 0424 01/06/19 0424 Results 24hrs Laboratory Tests Test 01/05/19 16:40 01/06/19 04:24 Urine Color YELLOW Urine Clarity SLIGHTLY CLOUDY A Urine pH 5.0 Urine Specific [place] 1.028 Urine Ketones TRACE A Urine Nitrite NEGATIVE Urine Bilirubin NEGATIVE Urine Urobilinogen NEGATIVE Urine Leukocyte Esterase NEGATIVE Urine Microscopic RBC 2 Urine Microscopic WBC 1 Urine Mucus FEW A Urine Hemoglobin NEGATIVE Urine Random Creatinine 264.20 Urine Random Sodium 19 L Urine Glucose NEGATIVE Urine Total Protein 11.0 White Blood Count 11.2 H Red Blood Count 4.79 Hemoglobin 12.2 L Hematocrit 40.0 L Mean Corpuscular Volume 83.5 Mean Corpuscular Hemoglobin 25.5 L Mean Corpuscular Hemoglobin Concent 30.5 L Red Cell Distribution Width 17.0 H Platelet Count 136 L Mean Platelet Volume 10.8 H Immature Granulocytes % 0.800 H Neutrophils % 75.2 Lymphocytes % 13.2 L Monocytes % 7.4 Eosinophils % 2.9 Basophils % 0.5 Nucleated Red Blood Cells % 0.0 Immature Granulocytes # 0.090 H Neutrophils # 8.4 H Lymphocytes # 1.5 Monocytes # 0.8 Eosinophils # 0.3 Basophils # 0.1 Nucleated Red Blood Cells # 0.0 Prothrombin Time 14.9 Prothrombin Time Ratio 1.2 INR International Normalized Ratio 1.16 Sodium Level 141 Potassium Level 3.9 Chloride Level 108 Carbon Dioxide Level 25 Anion Gap 8 Blood Urea Nitrogen 31 H Creatinine 1.10 Glucose Level 97 Calcium Level 9.1 Phosphorus Level 4.4 Magnesium Level 2.1 Albumin 3.4 Medications Medication Current Medications IV Flush (NS 3 ml) 3 ml PER PROTOCOL IV ; Start 01/03/19 at 04:00 Ondansetron HCl (Zofran Inj) 4 mg Q6H PRN IV NAUSEA/VOMITING; Start 01/03/19 at 04:00 Acetaminophen (Tylenol Tab) 650 mg Q6H PRN PO .PAIN 1-3 OR TEMP; Start 01/03/19 at 04:00 Docusate Sodium (Colace) 100 mg Q12H PRN PO .CONSTIPATION; Start 01/03/19 at 04:00 Bisacodyl (Dulcolax) 5 mg DAILY PRN PO .CONSTIPATION Last administered on 12/22 11/09at 08:13; Admin Dose 5 MG; Start 01/03/19 at 04:00 Hydralazine HCl (Apresoline) 10 mg Q4H PRN IV ELEVATED BLOOD PRESSURE Last administered on 01/04/19at 02:03; Admin Dose 10 MG; Start 01/03/19 at 07:19 Levalbuterol (Xopenex Neb) 1.25 mg Q4H RESP THERAPY PRN HHN WHEEZING; Start 01/04/19 at 03:30 Levalbuterol (Xopenex Neb) 0.63 mg Q4H RESP THERAPY PRN HHN shortness of breath; Start 01/04/19 at 08:30 Aspirin (Aspirin) 81 mg DAILY PO Last administered on 01/06/19 11:15; Admin Dose 81 MG; Start 01/04/19 at 09:30 Atorvastatin Calcium (Lipitor) 20 mg QHS PO Last administered on 01/05/19 21: 23; Admin Dose 20 MG; Start 01/04/19 at 21:00 Cholecalciferol (Vitamin D) 2,000 unit DAILY PO Last administered on 01/06/19 09:09; Admin Dose 2,000 UNIT; Start 01/04/19 at 09:30 Labetalol HCl (Normodyne) 200 mg BID PO Last administered on 01/06/19 09:10; Admin Dose 200 MG; Start 01/04/19 at 09:30 Sertraline HCl (Zoloft) 50 mg DAILY PO Last administered on 01/06/19 09:09; Admin Dose 50 MG; Start 01/04/19 at 09:30 Tamsulosin HCl (Flomax) 0.4 mg DAILY@2100 PO Last administered on 01/05/19 2 1:23; Admin Dose 0.4 MG; Start 01/04/19 at 21:00 Enoxaparin Sodium (Lovenox) 85 mg Q12 SC Last administered on 01/06/19 11:16; Admin Dose 85 MG; Start 01/04/19 at 21:00 Ceftriaxone Sodium 50 ml @ 100 mls/hr Q24H IVPB Last administered on 01/05/19 15:42; Admin Dose 100 MLS/HR; Start 01/05/19 at 15:30 Lisinopril (Zestril) 5 mg DAILY PO Last administered on 01/06/19 09:10; Admin Dose 5 MG; Start 01/06/19 at 09:00 Metoprolol Succinate (Toprol Xl) 25 mg DAILY PO ; Start 01/06/19 at 09:00; Sta tus UNV Warfarin Sodium (Coumadin) 5 mg DAILY@17 PO ; Start 01/06/19 at 17:00 Miscellaneous Information (*Order Clarification Bulletin) MEDICATION REQUIRES CLARIFICATI... Q8H XX ; Start 01/05/19 at 20:30; Stop 01/07/19 at 23:59 SHANTAL COY NP Jan 06, 2019 12:58
[2019-01-06 13:47] VITALS: BP 121/65; PULSE 73; RESP 18
[2019-01-06] MEDS: CEFTRIAXONE 1 GM/50 ML (PMX) 50 ML IVPB SCH (15:03)
--- NOTE | 2019-01-06 15:04 | PN ---
Date/Time of Note Date/Time of Note DATE: 01/06/19 TIME: 15:04 Objective Vitals Vital Signs Date Temp Pulse Resp B/P (MAP) Pulse Ox O2 O2 Flow FiO2 Time Delivery Rate 01/06/19 97.8 73 18 121/65 91 Room Air 13:47 (83) 01/06/19 21 05:38 01/05/19 2.0 08:10 Intake and Output 01/05/19 01/05/19 01/06/19 1515:00 23:00 07:00 IntakeIntake Total 50 ml 450 ml OutputOutput Total 75 ml BalanceBalance 50 ml 450 ml -75 ml Results Result Diagram: 01/06/19 0424 01/06/19 0424 Medications Medications Current Medications IV Flush (NS 3 ml) 3 ml PER PROTOCOL IV ; Start 01/03/19 at 04:00 Ondansetron HCl (Zofran Inj) 4 mg Q6H PRN IV NAUSEA/VOMITING; Start 01/03/19 at 04:00 Acetaminophen (Tylenol Tab) 650 mg Q6H PRN PO .PAIN 1-3 OR TEMP; Start 01/03/19 at 04:00 Docusate Sodium (Colace) 100 mg Q12H PRN PO .CONSTIPATION; Start 01/03/19 at 04:00 Bisacodyl (Dulcolax) 5 mg DAILY PRN PO .CONSTIPATION Last administered on 01/05/19at 08:13; Admin Dose 5 MG; Start 01/03/19 at 04:00 Hydralazine HCl (Apresoline) 10 mg Q4H PRN IV ELEVATED BLOOD PRESSURE Last administered on 01/04/19at 02:03; Admin Dose 10 MG; Start 01/03/19 at 07:19 Levalbuterol (Xopenex Neb) 1.25 mg Q4H RESP THERAPY PRN HHN WHEEZING; Start 01/04/19 at 03:30 Levalbuterol (Xopenex Neb) 0.63 mg Q4H RESP THERAPY PRN HHN shortness of [place] ath; Start 01/04/19 at 08:30 Aspirin (Aspirin) 81 mg DAILY PO Last administered on 01/06/19at 11:15; Admin Dose 81 MG; Start 01/04/19 at 09:30 Atorvastatin Calcium (Lipitor) 20 mg QHS PO Last administered on 01/05/19 21:23; Admin Dose 20 MG; Start 01/04/19 at 21:00 Cholecalciferol (Vitamin D) 2,000 unit DAILY PO Last administered on 01/06/19 09:09; Admin Dose 2,000 UNIT; Start 01/04/19 at 09:30 Labetalol HCl (Normodyne) 200 mg BID PO Last administered on 01/06/19 09:10; Admin Dose 200 MG; Start 01/04/19 at 09:30 Sertraline HCl (Zoloft) 50 mg DAILY PO Last administered on 01/06/19 09:09; Admin Dose 50 MG; Start 01/04/19 at 09:30 Tamsulosin HCl (Flomax) 0.4 mg DAILY@2100 PO Last administered on 01/05/19 21:23; Admin Dose 0.4 MG; Start 01/04/19 at 21:00 Enoxaparin Sodium (Lovenox) 85 mg Q12 SC Last administered on 01/06/19 11:16; Admin Dose 85 MG; Start 01/04/19 at 21:00 Ceftriaxone Sodium 50 ml @ 100 mls/hr Q24H IVPB Last administered on 01/05/19 15:42; Admin Dose 100 MLS/HR; Start 01/05/19 at 15:30 Lisinopril (Zestril) 5 mg DAILY PO Last administered on 01/06/19 09:10; Admin Dose 5 MG; Start 01/06/19 at 09:00 Warfarin Sodium (Coumadin) 5 mg DAILY@17 PO ; Start 01/06/19 at 17:00 VTE Prophylaxis Risk score (from Nsg)>0 risk: 6 SCD applied (from Ns): No SCD contraindication: other Lines/Catheters IV Catheter Type: Calderon in Place: No Assessment/Plan Hospital Course Subjective No acute complaints Objective Physical exam General: Patient is laying in bed and answers questions appropriately Mentation: Patient is alert and oriented 4, Head: Normocephalic atraumatic Eyes: EOMI, pupils reactive to light Neck: Supple, nontender, midline Respiratory: Clear to auscultation bilaterally Cardiovascular: regular rate, no obvious murmurs Gastrointestinal: non-tender to palpation, bowel sounds heard. Neurological: Moves all extremities spontaneously Skin: No new skin lesions Assessment/Plan 1. SIRS, unknown source - WBC trending down - ID consultation appreciated - Blood culture positives but may be contaminant. repeat cultures done. - continue broad spectrum antibiotics for now atrial thrombus -on lovenox per cardiology, transitioning to coumadin 2. CAD - pacer/AICD in placed - restarted home medications 3. Generalized weakness - per GF patient usually sleeps all day and is prone to falls - PT consulted for evaluation 4. h/o Colon cancer 2012 - stable 5. Mild cognitive impairment - patient remains pleasant 6. Disposition -We will await PT recommendations for discharge to assisted facility versus home with home health PT. Patient may be fall risk. Will also need to determine Coumadin for patient outpatient. DONALDO ANDERSON Jan 06, 2019 15:04
[2019-01-06] MEDS ORDERED: WARFARIN 5 MG TAB PO SCH (17:00)
--- NOTE | 2019-01-06 17:10 | CONS ---
Assessment/Plan Assessment/Plan Hospital Course (Demo Recall) Cardiomyopathy with left ventricular ejection fraction 50% High likelihood left apical thrombus History of AICD CAD Colon cancer Weakness and fatigue Patient admitted with weakness and fatigue and found to have leukocytosis. Echocardiogram ordered with incidental left apical thrombus with hypokinesis in the apex I discussed with the patient, he does ambulate with a walker, spoke to nurse, walks with minimal assistance Started coumadin, lovenox for bridging Continue beta-chelita, MARSHAL inhibitor, will DC aspirin given on anticoagulation Consultation Date/Type/Reason Admit Date/Time Jan 03, 2019 at 03:38 Initial Consult Date Type of Consult Cardiology Date/Time of Note DATE: 01/06/19 TIME: 17:08 24 HR Interval Summary Free Text/Dictation No shortness of breath, chest pain or palpitations Exam/Review of Systems Vital Signs Vitals Vital Signs Date Temp Pulse Resp B/P (MAP) Pulse Ox O2 O2 Flow FiO2 Time Delivery Rate 01/06/19 97.8 73 18 121/65 91 Room Air 13:47 (83) 01/06/19 21 05:38 01/05/19 2.0 08:10 Intake and Output 01/05/19 01/05/19 01/06/19 1515:00 23:00 07:00 IntakeIntake Total 50 ml 450 ml OutputOutput Total 75 ml BalanceBalance 50 ml 450 ml -75 ml Exam Constitutional: alert, oriented Head: normocephalic Respiratory: clear to auscultation, normal air movement Cardiovascular: regular rate and rhythm (S1-S2 heard) Gastrointestinal: soft, non-tender, bowel sounds Extremities: other (No significant edema) Labs Result Diagram: 01/06/19 0424 01/06/19 0424 Results 24hrs Laboratory Tests Test 01/06/19 04:24 White Blood Count 11.2 H Red Blood Count 4.79 Hemoglobin 12.2 L Hematocrit 40.0 L Mean Corpuscular Volume 83.5 Mean Corpuscular Hemoglobin 25.5 L Mean Corpuscular Hemoglobin Concent 30.5 L Red Cell Distribution Width 17.0 H Platelet Count 136 L Mean Platelet Volume 10.8 H Immature Granulocytes % 0.800 H Neutrophils % 75.2 Lymphocytes % 13.2 L Monocytes % 7.4 Eosinophils % 2.9 Basophils % 0.5 Nucleated Red Blood Cells % 0.0 Immature Granulocytes # 0.090 H Neutrophils # 8.4 H Lymphocytes # 1.5 Monocytes # 0.8 Eosinophils # 0.3 Basophils # 0.1 Nucleated Red Blood Cells # 0.0 Prothrombin Time 14.9 Prothrombin Time Ratio 1.2 INR International Normalized Ratio 1.16 Sodium Level 141 Potassium Level 3.9 Chloride Level 108 Carbon Dioxide Level 25 Anion Gap 8 Blood Urea Nitrogen 31 H Creatinine 1.10 Glucose Level 97 Calcium Level 9.1 Phosphorus Level 4.4 Magnesium Level 2.1 Albumin 3.4 Medications Medications Current Medications IV Flush (NS 3 ml) 3 ml PER PROTOCOL IV ; Start 01/03/19 at 04:00 Ondansetron HCl (Zofran Inj) 4 mg Q6H PRN IV NAUSEA/VOMITING; Start 01/03/19 at 04:00 Acetaminophen (Tylenol Tab) 650 mg Q6H PRN PO .PAIN 1-3 OR TEMP; Start 01/03/19 at 04:00 Docusate Sodium (Colace) 100 mg Q12H PRN PO .CONSTIPATION; Start 01/03/19 at 04:00 Bisacodyl (Dulcolax) 5 mg DAILY PRN PO .CONSTIPATION Last administered on 01/05/19at 08:13; Admin Dose 5 MG; Start 01/03/19 at 04:00 Hydralazine HCl (Apresoline) 10 mg Q4H PRN IV ELEVATED BLOOD PRESSURE Last administered on 01/04/19at 02:03; Admin Dose 10 MG; Start 01/03/19 at 07:19 Levalbuterol (Xopenex Neb) 1.25 mg Q4H RESP THERAPY PRN HHN WHEEZING; Start 01/04/19 at 03:30 Levalbuterol (Xopenex Neb) 0.63 mg Q4H RESP THERAPY PRN HHN shortness of breath; Start 01/04/19 at 08:30 Aspirin (Aspirin) 81 mg DAILY PO Last administered on 01/06/19at 11:15; Admin Dose 81 MG; Start 01/04/19 at 09:30 Atorvastatin Calcium (Lipitor) 20 mg QHS PO Last administered on 01/05/19at 21:23; Admin Dose 20 MG; Start 01/04/19 at 21:00 Cholecalciferol (Vitamin D) 2,000 unit DAILY PO Last administered on 01/06/19at 09:09; Admin Dose 2,000 UNIT; Start 01/04/19 at 09:30 Labetalol HCl (Normodyne) 200 mg BID PO Last administered on 01/06/19 09:10; Admin Dose 200 MG; Start 01/04/19 at 09:30 Sertraline HCl (Zoloft) 50 mg DAILY PO Last administered on 01/06/19at 09:09; Admin Dose 50 MG; Start 01/04/19 at 09:30 Tamsulosin HCl (Flomax) 0.4 mg DAILY@2100 PO Last administered on 01/05/19at 21:23; Admin Dose 0.4 MG; Start 01/04/19 at 21:00 Enoxaparin Sodium (Lovenox) 85 mg Q12 SC Last administered on 01/06/19at 11:16; Admin Dose 85 MG; Start 01/04/19 at 21:00 Ceftriaxone Sodium 50 ml @ 100 mls/hr Q24H IVPB Last administered on 01/06/19at 15:03; Admin Dose 100 MLS/HR; Start 01/05/19 at 15:30 Lisinopril (Zestril) 5 mg DAILY PO Last administered on 01/06/19 09:10; Admin Dose 5 MG; Start 01/06/19 at 09:00 Warfarin Sodium (Coumadin) 5 mg DAILY@17 PO ; Start 01/06/19 at 17:00 Jori Bird DO Jan 06, 2019 17:10
[2019-01-06 20:16] VITALS: BP 136/69; PULSE 77; RESP 18
[2019-01-06] MEDS: ATORVASTATIN 20 MG TAB PO SCH (20:53)
[2019-01-06] MEDS: TAMSULOSIN (SR) 0.4 MG CAP PO SCH (20:53)
[2019-01-07 01:59] VITALS: BP 151/88; PULSE 78; RESP 18
[2019-01-07 07:34] VITALS: BP 150/81; PULSE 74; RESP 20
[2019-01-07] MEDS: SERTRALINE 50 MG TAB PO SCH (08:37)
[2019-01-07] MEDS: CHOLECALCIFEROL 1,000 UNIT TAB PO SCH (08:37)
[2019-01-07] MEDS: LABETALOL 200 MG TAB PO SCH (08:38)
[2019-01-07] MEDS: ENOXAPARIN 100 MG/ML SYG SC SCH (08:39)
[2019-01-07] MEDS: LISINOPRIL 5 MG TAB PO SCH (08:42)
[2019-01-07] MEDS ORDERED: LEVOFLOXACIN 750 MG TABLET PO SCH (10:30)
--- NOTE | 2019-01-07 11:01 | DS ---
Date/Time of Note Date/Time of Note DATE: 01/07/19 TIME: 11:01 Discharge Summary Admission/Discharge Info Admit Date/Time Jan 03, 2019 at 03:38 Discharge Date/Time Patient Condition: Stable Hospital Course Patient is a male with a past medical history significant for likely progressive dementia, ventricular thrombus, history of AICD, coronary artery disease, history of colon cancer, possible history of BPH who presents to [facility] for weakness. Patient was diagnosed with a urinary tract infection and treated appropriately by infectious disease. Due to patient's issues with his heart, patient was seen by cardiology who on echocardiogram found apical thrombus in the ventricle and subsequently start the patient on Lovenox with a warfarin bridge. Patient will need to continue his oral antibiotic for approximately 7 days. Incidentally patient was also found to have 1 out of 2 cultures positive for coag negative staph which ID determined that was consistent with contaminant. Due to patient's issues at home and his likely progressively worsening dementia it was decided that a [facility] facility would be a better facility for him as his significant other had some significant concerns regarding his safety and fall risk at home. Patient's aspirin was stopped due to him being on anticoagulation at this time. Of note patient was seeing a primary care physician who knew about his ventricular thrombus, unknown if thrombus is acute or chronic at this point however he was on warfarin although approximately a 1 year ago was taken off as he had persistent bloody diarrhea. I am attempting to getting contact with Dr. Yip, however awaiting callback. At this time patient and patient's would like the approval of his primary care provider to restart warfarin but in the meantime is okay with a Lovenox therapeutic dose for his ventricular thrombus. I recommend that physician taking over at [facility] facility contact Dr. Yip to determine if patient would benefit from a change of medication and a Lovenox to warfarin bridge. Patient will continue other medication including MARSHAL inhibitor and beta-chelita. Discharge diagnosis SIRS, likely secondary to UTI Urinary tract infection Ventricular thrombus Coronary artery disease status post AICD pacemaker Generalized weakness Progressive dementia History of colon cancer in 2012 Home Meds Reported Medications Sertraline Hcl* (Sertraline Hcl*) 50 Mg Tablet, 50 MG PO DAILY, #30 TAB 01/03/19 Enalapril Maleate* (Enalapril Maleate*) 10 Mg Tablet, 10 MG PO DAILY, TAB 01/03/19 Cholecalciferol* (Vitamin D3*) 1,000 Unit Tablet, 2000 UNIT PO DAILY, TAB 01/03/19 Labetalol Hcl (Normodyne) 200 Mg Tablet, PO BID, TAB 01/03/19 Tamsulosin Hcl* (Flomax*) 0.4 Mg Cap.er.24h, 0.4 MG PO DAILY, CAP 01/03/19 Aspirin (Aspirin) 81 Mg Chew, 81 MG PO DAILY, TAB.CHEW 01/03/19 Atorvastatin* (Atorvastatin*) 40 Mg Tablet, 20 MG PO QHS, #30 TAB 01/03/19 Primary Care Provider Care Physician No Primary Time spent on discharge: > 30 minutes Pending Labs Laboratory Tests Test 01/07/19 04:30 White Blood Count 9.2 10^3/ul (4.8-10.8) Red Blood Count 4.73 10^6/ul (4.70-6.10) Hemoglobin 12.2 g/dl (14.0-18.0) Hematocrit 39.7 % (42.0-52.0) Mean Corpuscular Volume 83.9 fl (82.0-101.0) Mean Corpuscular Hemoglobin 25.8 pg (29.0-33.0) Mean Corpuscular Hemoglobin Concent 30.7 g/dl (32.0-37.0) Red Cell Distribution Width 16.8 % (11.5-14.5) Platelet Count 138 10^3/UL (140-415) Mean Platelet Volume 11.2 fl (7.4-10.4) Immature Granulocytes % 0.700 % (0.001-0.429) Neutrophils % 71.8 % (39.0-77.0) Lymphocytes % 17.0 % (15.0-51.0) Monocytes % 7.0 % (0.0-11.0) Eosinophils % 3.1 % (0.0-7.0) Basophils % 0.4 % (0.0-2.0) Nucleated Red Blood Cells % 0.0 /100WBC (0.0-0.0) Immature Granulocytes # 0.060 10^3/ul (0.0-0.031) Neutrophils # 6.6 10^3/ul (1.6-7.5) Lymphocytes # 1.6 10^3/ul (0.8-2.9) Monocytes # 0.6 10^3/ul (0.3-0.9) Eosinophils # 0.3 10^3/ul (0.0-0.5) Basophils # 0.0 10^3/ul (0.0-0.1) Nucleated Red Blood Cells # 0.0 10^3/ul (0.0-0.0) Prothrombin Time 16.1 Sec (11.9-14.9) Prothrombin Time Ratio 1.3 INR International Normalized Ratio 1.28 Sodium Level 143 mmol/L (135-144) Potassium Level 4.3 mmol/L (3.5-5.1) Chloride Level 109 mmol/L (97-110) Carbon Dioxide Level 25 mmol/L (21-31) Anion Gap 9 (5-13) Blood Urea Nitrogen 30 mg/dl (7-20) Creatinine 1.00 mg/dl (0.61-1.24) Est Glomerular Filtrat Rate mL/min mL/min (>60) Glucose Level 91 mg/dl (70-220) Calcium Level 9.0 mg/dl (8.4-10.2) Phosphorus Level 3.9 mg/dl (2.5-4.9) Magnesium Level 2.1 mg/dl (1.7-2.5) Albumin 3.4 g/dl (3.3-4.9) DONALDO ANDERSON Jan 07, 2019 11:01
--- NOTE | 2019-01-07 11:51 | CONS ---
Assessment/Plan Assessment/Plan Hospital Course (Demo Recall) All noted, no acute changes Urine culture grew E. coli, blood culture grew coag negative staph species 1 out of 2 sets. Repeat blood cultures negative Antimicrobials: Levaquin Chest x-ray this morning revealed right hemidiaphragm remains elevated with mild patchy left basilar atelectasis Physical examination: Well-developed well-nourished elderly white man who is alert in no distress. Head atraumatic normocephalic neck is supple chest rise symmetrical breath sounds diminished bases heart S1-S2 abdomen soft bowel sounds present Assessment: 1. SIRS 2. Urinary tract infection, gram-negative rods 3. Bacteremia cw contaminant 4. Possible pneumonia 5. Coronary artery disease with a history of AICD 6. History of colon cancer Plan: Remains stable, pending dc home on current abx Consultation Date/Type/Reason Admit Date/Time Jan 03, 2019 at 03:38 Initial Consult Date Type of Consult id Date/Time of Note DATE: 01/07/19 TIME: 11:50 Exam/Review of Systems Exam Vitals Vital Signs Date Temp Pulse Resp B/P (MAP) Pulse Ox O2 O2 Flow FiO2 Time Delivery Rate 01/07/19 97.9 74 20 150/81 93 07:34 (104) 01/06/19 Room Air 13:47 01/06/19 21 05:38 01/05/19 2.0 08:10 Intake and Output 01/06/19 01/06/19 01/07/19 1515:00 23:00 07:00 IntakeIntake Total 200 ml 250 ml 200 ml OutputOutput Total 100 ml 200 ml BalanceBalance 100 ml 250 ml 0 ml Results Result Diagram: 01/07/19 0430 01/07/19 0430 Results 24hrs Laboratory Tests Test 01/07/19 04:30 White Blood Count 9.2 Red Blood Count 4.73 Hemoglobin 12.2 L Hematocrit 39.7 L Mean Corpuscular Volume 83.9 Mean Corpuscular Hemoglobin 25.8 L Mean Corpuscular Hemoglobin Concent 30.7 L Red Cell Distribution Width 16.8 H Platelet Count 138 L Mean Platelet Volume 11.2 H Immature Granulocytes % 0.700 H Neutrophils % 71.8 Lymphocytes % 17.0 Monocytes % 7.0 Eosinophils % 3.1 Basophils % 0.4 Nucleated Red Blood Cells % 0.0 Immature Granulocytes # 0.060 H Neutrophils # 6.6 Lymphocytes # 1.6 Monocytes # 0.6 Eosinophils # 0.3 Basophils # 0.0 Nucleated Red Blood Cells # 0.0 Prothrombin Time 16.1 H Prothrombin Time Ratio 1.3 INR International Normalized Ratio 1.28 Sodium Level 143 Potassium Level 4.3 Chloride Level 109 Carbon Dioxide Level 25 Anion Gap 9 Blood Urea Nitrogen 30 H Creatinine 1.00 Est Glomerular Filtrat Rate mL/min Glucose Level 91 Calcium Level 9.0 Phosphorus Level 3.9 Magnesium Level 2.1 Albumin 3.4 Medications Medication Current Medications IV Flush (NS 3 ml) 3 ml PER PROTOCOL IV ; Start 01/03/19 at 04:00 Ondansetron HCl (Zofran Inj) 4 mg Q6H PRN IV NAUSEA/VOMITING; Start 01/03/19 at 04:00 Acetaminophen (Tylenol Tab) 650 mg Q6H PRN PO .PAIN 1-3 OR TEMP; Start 01/03/19 at 04:00 Docusate Sodium (Colace) 100 mg Q12H PRN PO .CONSTIPATION; Start 01/03/19 at 04:00 Bisacodyl (Dulcolax) 5 mg DAILY PRN PO .CONSTIPATION Last administered on 01/05/19at 08:13; Admin Dose 5 MG; Start 01/03/19 at 04:00 Hydralazine HCl (Apresoline) 10 mg Q4H PRN IV ELEVATED BLOOD PRESSURE Last administered on 01/04/19at 02:03; Admin Dose 10 MG; Start 01/03/19 at 07:19 Levalbuterol (Xopenex Neb) 1.25 mg Q4H RESP THERAPY PRN HHN WHEEZING; Start at 03:30 Levalbuterol (Xopenex Neb) 0.63 mg Q4H RESP THERAPY PRN HHN shortness of breath; Start 01/04/19 at 08:30 Atorvastatin Calcium (Lipitor) 20 mg QHS PO Last administered on 01/06/19at 20 :53; Admin Dose 20 MG; Start 01/04/19 at 21:00 Cholecalciferol (Vitamin D) 2,000 unit DAILY PO Last administered on 01/07/19at 08:37; Admin Dose 2,000 UNIT; Start 01/04/19 at 09:30 Labetalol HCl (Normodyne) 200 mg BID PO Last administered on 01/07/19at 08:38; Admin Dose 200 MG; Start 01/04/19 at 09:30 Sertraline HCl (Zoloft) 50 mg DAILY PO Last administered on 01/07/19at 08:37; Admin Dose 50 MG; Start 01/04/19 at 09:30 Tamsulosin HCl (Flomax) 0.4 mg DAILY@2100 PO Last administered on 01/06/19at 20:53; Admin Dose 0.4 MG; Start 01/04/19 at 21:00 Enoxaparin Sodium (Lovenox) 85 mg Q12 SC Last administered on 01/07/19at 08:39; Admin Dose 85 MG; Start 01/04/19 at 21:00 Lisinopril (Zestril) 5 mg DAILY PO Last administered on 01/07/19at 08:42; Admin Dose 5 MG; Start 01/06/19 at 09:00 Warfarin Sodium (Coumadin) 5 mg DAILY@17 PO ; Start 01/06/19 at 17:00; Status Hold Levofloxacin (Levaquin) 750 mg DAILY@06 PO ; Start 01/07/19 at 10:30 SHANTAL COY NP Jan 07, 2019 11:51
[2019-01-07 14:00] VITALS: BP 125/71; PULSE 75; RESP 20
--- NOTE | 2019-01-07 15:24 | CONS ---
Consult Date/Type/Reason Admit Date/Time Jan 03, 2019 at 03:38 Initial Consult Date Date/Time of Note DATE: 01/07/19 TIME: 15:23 Subjective 83-year-old gentleman with past medical history of hypertension, coronary artery, pacemaker, AICD, who presented from home with generalized weakness and difficulty walking. In the course of the workup, was noted to have systemic inflammatory response syndrome, hypertension, coronary artery disease. The patient was admitted to the hospital. The patient was started on broad-spectrum antibiotics. Echocardiogram ordered which demonstrated a left apical thrombus with hypokinesis of the apex. The patient was admitted with Enalapril and hydralazine and noted to have azotemia and acute kidney injury. Creatinine on admission was 1.1 and went up to 1.3 . Continues good urine output since admission. PHYSICAL EXAMINATION: HEENT: Normocephalic, atraumatic. Pupils equal and reactive to light. Oropharynx is moist. NECK: Supple. HEART: Regular rate and rhythm. LUNGS: Clear to auscultation. ABDOMEN: Soft, nontender, nondistended. Bowel sounds are present. Objective Vitals Vital Signs Date Temp Pulse Resp B/P (MAP) Pulse Ox O2 O2 Flow FiO2 Time Delivery Rate 01/07/19 97.9 75 20 125/71 93 14:00 (89) 01/06/19 Room Air 13:47 01/06/19 21 05:38 01/05/19 2.0 08:10 Intake and Output 01/06/19 01/06/19 01/07/19 1515:00 23:00 07:00 IntakeIntake Total 200 ml 250 ml 200 ml OutputOutput Total 100 ml 200 ml BalanceBalance 100 ml 250 ml 0 ml Results/Medications Result Diagram: 01/07/19 0430 01/07/19 0430 Results 24 hrs Laboratory Tests Test 01/07/19 04:30 White Blood Count 9.2 Red Blood Count 4.73 Hemoglobin 12.2 L Hematocrit 39.7 L Mean Corpuscular Volume 83.9 Mean Corpuscular Hemoglobin 25.8 L Mean Corpuscular Hemoglobin Concent 30.7 L Red Cell Distribution Width 16.8 H Platelet Count 138 L Mean Platelet Volume 11.2 H Immature Granulocytes % 0.700 H Neutrophils % 71.8 Lymphocytes % 17.0 Monocytes % 7.0 Eosinophils % 3.1 Basophils % 0.4 Nucleated Red Blood Cells % 0.0 Immature Granulocytes # 0.060 H Neutrophils # 6.6 Lymphocytes # 1.6 Monocytes # 0.6 Eosinophils # 0.3 Basophils # 0.0 Nucleated Red Blood Cells # 0.0 Prothrombin Time 16.1 H Prothrombin Time Ratio 1.3 INR International Normalized Ratio 1.28 Sodium Level 143 Potassium Level 4.3 Chloride Level 109 Carbon Dioxide Level 25 Anion Gap 9 Blood Urea Nitrogen 30 H Creatinine 1.00 Est Glomerular Filtrat Rate mL/min Glucose Level 91 Calcium Level 9.0 Phosphorus Level 3.9 Magnesium Level 2.1 Albumin 3.4 Home Meds Active Scripts Lisinopril* (Lisinopril*) 5 Mg Tablet, 5 MG PO DAILY for 30 Days, TAB Prov:DONALDO ANDERSON 01/07/19 Enoxaparin Sodium (Enoxaparin Sodium) 100 Mg/1 Ml Syringe, 85 MG SC Q12 for 30 Days Prov:DONALDO ANDERSON 01/07/19 Levofloxacin* (Levaquin*) 750 Mg Tablet, 750 MG PO DAILY@06 for 7 Days, TAB Prov:DONALDO ANDERSON 01/07/19 Reported Medications Sertraline Hcl* (Sertraline Hcl*) 50 Mg Tablet, 50 MG PO DAILY, #30 TAB 01/03/19 Cholecalciferol* (Vitamin D3*) 1,000 Unit Tablet, 2000 UNIT PO DAILY, TAB 01/03/19 Labetalol Hcl (Normodyne) 200 Mg Tablet, PO BID, TAB 01/03/19 Tamsulosin Hcl* (Flomax*) 0.4 Mg Cap.er.24h, 0.4 MG PO DAILY, CAP 01/03/19 Atorvastatin* (Atorvastatin*) 40 Mg Tablet, 20 MG PO QHS, #30 TAB 01/03/19 Discontinued Reported Medications Enalapril Maleate* (Enalapril Maleate*) 10 Mg Tablet, 10 MG PO DAILY, TAB 01/03/19 Aspirin (Aspirin) 81 Mg Chew, 81 MG PO DAILY, TAB.CHEW 01/03/19 Medications Current Medications IV Flush (NS 3 ml) 3 ml PER PROTOCOL IV ; Start 01/03/19 at 04:00 Ondansetron HCl (Zofran Inj) 4 mg Q6H PRN IV NAUSEA/VOMITING; Start 01/03/19 at 04:00 Acetaminophen (Tylenol Tab) 650 mg Q6H PRN PO .PAIN 1-3 OR TEMP; Start 01/03/19 at 04:00 Docusate Sodium (Colace) 100 mg Q12H PRN PO .CONSTIPATION; Start 01/03/19 at 04:00 Bisacodyl (Dulcolax) 5 mg DAILY PRN PO .CONSTIPATION Last administered on 01/05/19 08:13; Admin Dose 5 MG; Start 01/03/19 at 04:00 Hydralazine HCl (Apresoline) 10 mg Q4H PRN IV ELEVATED BLOOD PRESSURE Last admi nistered on 01/04/19at 02:03; Admin Dose 10 MG; Start 01/03/19 at 07:19 Levalbuterol (Xopenex Neb) 1.25 mg Q4H RESP THERAPY PRN HHN WHEEZING; Start 01/04/19 at 03:30 Levalbuterol (Xopenex Neb) 0.63 mg Q4H RESP THERAPY PRN HHN shortness of breath; Start 01/04/19 at 08:30 Atorvastatin Calcium (Lipitor) 20 mg QHS PO Last administered on 01/06/19at 20:53; Admin Dose 20 MG; Start 01/04/19 at 21:00 Cholecalciferol (Vitamin D) 2,000 unit DAILY PO Last administered on 01/07/19 08:37; Admin Dose 2,000 UNIT; Start 01/04/19 at 09:30 Labetalol HCl (Normodyne) 200 mg BID PO Last administered on 01/07/19 08:38; Admin Dose 200 MG; Start 01/04/19 at 09:30 Sertraline HCl (Zoloft) 50 mg DAILY PO Last administered on 01/07/19 08:37; Admin Dose 50 MG; Start 01/04/19 at 09:30 Tamsulosin HCl (Flomax) 0.4 mg DAILY@2100 PO Last administered on 01/06/19 20:53; Admin Dose 0.4 MG; Start 01/04/19 at 21:00 Enoxaparin Sodium (Lovenox) 85 mg Q12 SC Last administered on 01/07/19at 08:39; Admin Dose 85 MG; Start 01/04/19 at 21:00 Lisinopril (Zestril) 5 mg DAILY PO Last administered on 01/07/19at 08:42; Admin Dose 5 MG; Start 01/06/19 at 09:00 Warfarin Sodium (Coumadin) 5 mg DAILY@17 PO ; Start 01/06/19 at 17:00; Status Hold Levofloxacin (Levaquin) 750 mg DAILY@06 PO Last administered on 01/07/19at 12:1 6; Admin Dose 750 MG; Start 01/07/19 at 10:30 Assessment/Plan Hospital Course (Demo Recall) 1. Acute kidney injury. Nonoliguric, 1+ proteinuria on dipstick, suddenly worse, most likely related to hemodynamics. Rule out acute interstitial nephritis. now improving - fu urine studies, serial labs, avoid nephrotoxins. All meds dosed appropriately for renal function. - better this am. watch for diuretic phase of shital with electrolyte wasting. - all meds dosed ok. 2. Systemic inflammatory response syndrome, unknown source. White count is trending down. Infectious disease is following. Follow up cultures. 3. Atrial thrombus on Lovenox per cardiology. bridge to coumadin. 4. History of coronary artery disease, likely cardiomyopathy in light of auto matic implantable cardioverter-defibrillator, monitor carefully. Treat blood pressure secondary to medication optimization. 5. Generalized weakness. Physical therapy consulted, may be more chronic. 6. History of colon cancer in 2003, reportedly in remission. CHELSEY GUADARRAMA MD Jan 07, 2019 15:24
== END 2019-01-07 15:35 | DRG 872 ==
LOC: E/R 23:59 → 5EC 01-03 03:38
PROVIDERS: ADMIT Family Medicine; ATTEND Internal Medicine
DX: A41.9 Sepsis, unspecified organism (principal); N39.0 Urinary tract infection, site not specified; I42.9 Cardiomyopathy, unspecified; N17.9 Acute kidney failure, unspecified; E86.0 Dehydration; F03.90 Unspecified dementia, unspecified severity, without behavioral disturbance, psychotic disturbance, mood disturbance, and anxiety; I10 Essential (primary) hypertension; I25.10 Atherosclerotic heart disease of native coronary artery without angina pectoris; B96.20 Unspecified Escherichia coli [E. coli] as the cause of diseases classified elsewhere; Z95.810 Presence of automatic (implantable) cardiac defibrillator; Z85.038 Personal history of other malignant neoplasm of large intestine; Z87.891 Personal history of nicotine dependence; Z79.82 Long term (current) use of aspirin
CPT/HCPCS: 36415; 71045; 76775; 80048; 80053; 80061; 80069; 81001; 81003; 83036; 83605; 83735; 84100; 84155; 84300; 84443; 84484; 85025; 85610; 85730; 87086; 87400; 93005; 93306; 94664; 97116; 97162; 97530; J0360; J0692; J0696; J1650; J1940; J2543; J3370; J7050